=== PATIENT | female | born 1945 | race Caucasian/White ===

== ENCOUNTER 2023-02-24 10:25 | Emergency (ER) | payer OTHER, SELFPAY ==
[2023-02-24 10:28] VITALS: BP 177/97; PULSE 66; RESP 18; TEMP 36.8; BMI 26.5
--- NOTE | 2023-02-24 10:39 | CT_ITS ---
The [address] [address] Patient Name: JESSIE CANSECO MRN: [id number] date: 1945 Sex: F Assigned Patient Location: ER Current Patient Location: ER Accession/Order Number: [id number] Exam Date: 02/24/2023 10:52 Report Date: 02/24/2023 11:30 At the request of: NURIS GATES Procedure: CT head/brain wo con EXAM: CT head/brain without con, CT facial bones without con HISTORY: Fall. Head and facial injury. COMPARISON: None. TECHNIQUE: Head CT: 3 mm axial images were obtained of the brain without contrast. Facial CT: 2 mm axial images were obtained the facial bones without contrast. Multiplanar reconstructions created. Automated exposure control utilized FINDINGS: Head CT: There is mild parenchymal volume loss. The brain demonstrates normal morphology and density. There is no mass, mass effect, nor hydrocephalus. There is no parenchymal hemorrhage nor subarachnoid hemorrhage. The extra-axial structures appear unremarkable. Prominent sella turcica with mostly CSF density although some suggestion of complexity or increased density on the sagittal images. Slight herniation of the optic chiasm Facial CT: Left periorbital soft tissue swelling The globes appear symmetric. This no proptosis. There is no orbital fracture. The extraocular muscles and retro-orbital fat appear normal. Mild ethmoid and left maxillary sinus mucosal thickening. Slight rightward nasal septal deviation. Slight cortical step-off of the anterior nasal bone reference sagittal image 30. Severe degenerative changes of the temporal mandibular joints. The mandible and maxilla appear intact The mastoid air cells are patent. CT/CT head/brain wo con IMPRESSION: No acute intracranial findings by head CT without contrast. Left periorbital soft tissue swelling. Probable minimally displaced nasal bone fracture. Moderate severe degenerative changes of the temporal mandibular joints. Prominent, empty sella turcica. Some complex density seen on the sagittal view and mild herniation of the optic chiasm. This may well represent a large the sella turcica. Given the mild complexity consider follow-up MRI imaging of the sella turcica with without contrast Electronically authenticated by: CELINA LOGAN Date: 02/24/2023 11:30
--- NOTE | 2023-02-24 10:39 | CT_ITS ---
The [address] [address] Patient Name: JESSIE CANSECO MRN: [id number] date: 1945 Sex: F Assigned Patient Location: ER Current Patient Location: ED.MAIN Accession/Order Number: [id number] Exam Date: 02/24/2023 10:52 Report Date: 02/24/2023 11:51 At the request of: NURIS GATES Procedure: CT cervical spine wo con CERVICAL SPINE CT WITHOUT CONTRAST: 02/24/2023 10:52 AM EST Clinical History:fall Comparison: None available . Unenhanced helically acquired data per protocol. PREVERTEBRAL/PARASPINAL: No focal soft tissue prominence or obvious fluid collection in these regions ALIGNMENT: Unremarkable Mild smooth bordered concavities of several cervical and upper thoracic endplates are likely chronic. There is no distinct evidence of acute fracture or dislocation. Chronic ossification/calcification near the C7 spinous process tip. Moderate DDD and some associated spondylosis at C5-C6. Mild anterior spondylosis at C6-C7. At unenhanced CT no obvious significant central stenosis in the cervical region. OTHER SOFT TISSUES: No focal acute posttraumatic finding. CT/CT cervical spine wo con IMPRESSION: 1. No evidence of acute fracture or dislocation. All CT scans at this facility use dose modulation, iterative reconstruction, and/or weight based dosing when appropriate to reduce radiation dose to as low as reasonably achievable. Electronically authenticated by: DOROTA BOB Date: 02/24/2023 11:51
--- NOTE | 2023-02-24 10:39 | CT_ITS ---
The [address] [address] Patient Name: JESSIE CANSECO MRN: [id number] date: 1945 Sex: F Assigned Patient Location: ER Current Patient Location: ER Accession/Order Number: [id number] Exam Date: 02/24/2023 10:52 Report Date: 02/24/2023 11:30 At the request of: NURIS GATES Procedure: CT facial bones wo con EXAM: CT head/brain without con, CT facial bones without con HISTORY: Fall. Head and facial injury. COMPARISON: None. TECHNIQUE: Head CT: 3 mm axial images were obtained of the brain without contrast. Facial CT: 2 mm axial images were obtained the facial bones without contrast. Multiplanar reconstructions created. Automated exposure control utilized FINDINGS: Head CT: There is mild parenchymal volume loss. The brain demonstrates normal morphology and density. There is no mass, mass effect, nor hydrocephalus. There is no parenchymal hemorrhage nor subarachnoid hemorrhage. The extra-axial structures appear unremarkable. Prominent sella turcica with mostly CSF density although some suggestion of complexity or increased density on the sagittal images. Slight herniation of the optic chiasm Facial CT: Left periorbital soft tissue swelling The globes appear symmetric. This no proptosis. There is no orbital fracture. The extraocular muscles and retro-orbital fat appear normal. Mild ethmoid and left maxillary sinus mucosal thickening. Slight rightward nasal septal deviation. Slight cortical step-off of the anterior nasal bone reference sagittal image 30. Severe degenerative changes of the temporal mandibular joints. The mandible and maxilla appear intact The mastoid air cells are patent. CT/CT facial bones wo con IMPRESSION: No acute intracranial findings by head CT without contrast. Left periorbital soft tissue swelling. Probable minimally displaced nasal bone fracture. Moderate severe degenerative changes of the temporal mandibular joints. Prominent, empty sella turcica. Some complex density seen on the sagittal view and mild herniation of the optic chiasm. This may well represent a large the sella turcica. Given the mild complexity consider follow-up MRI imaging of the sella turcica with without contrast Electronically authenticated by: CELINA LOGAN Date: 02/24/2023 11:30
--- NOTE | 2023-02-24 10:41 | ED.FALL1 ---
HPI - Fall General Chief Complaint: Head Injury Stated Complaint: FALL Time Seen by Provider: 02/24/23 10:27 Source: patient Mode of arrival: walk-in Limitations: no limitations History of Present Illness HPI Narrative: 77-year-old female presents for facial injury. Last night about 10 PM she tripped and she fell hitting her face on a step. She had a laceration that she recognized last night but didn't come in to be looked at and today she has bruising on her face so she was concerned and came in. She sustained an abrasion to her left knee but that is not significant and she's been able to walk without difficulty. Otherwise no other injury. Related Data Home Medications Medication Instructions Recorded Confirmed lisinopril 5 mg tablet 5 mg PO DAILY 02/24/23 02/24/23 Previous Rx's Medication Instructions Recorded cephalexin 250 mg capsule 250 mg PO Q8H #15 caps 02/24/23 Allergies Allergy/AdvReac Type Severity Reaction Status Date / Time No Known Drug Allergies Allergy Verified 02/24/23 10:28 Review of Systems ROS Narrative A ten point review of systems is negative except as noted above. PFSH PFSH Social History Smoking status: Never smoker Exam Narrative Exam Narrative: Nurses note and vital signs reviewed and patient is not hypoxic. General: The patient appears well and in no apparent distress. Patient is resting comfortably on cart. Skin: Warm, dry, no pallor noted. There is no rash noted. Head: Normocephalic, 3 cm present obliquely oriented above her left eye. There is bruising across her forehead and around her eyes particularly on the left side. the wound appears inflamed and there are some mild erythema surrounding it. Eye: Normal conjunctiva, no drainage Ears, Nose, Mouth, and Throat: oral mucosa is moist. Nares patent. Cardiovascular: Regular Rate and Rhythm Respiratory: Patient is in no distress, no accessory muscle use, lungs are clear to auscultation, no wheezing, rales or rhonchi Back: non-tender GI: nontender Musculoskeletal: small abrasion present on the anterior left knee and her knee has full range of motion. Ankles and hips are nontender. Right knee nontender. Neurological: A&O, normal speech Psychiatric: Cooperative Constitutional Vital Signs, click to edit/add: Last Vital Signs Temp 98.2 F 11/18/23 10:28 Pulse 66 02/24/23 10:28 Resp 18 02/24/23 10:28 BP 177/97 H 02/24/23 10:28 Course Vital Signs Vital signs: Vital Signs Temperature 98.2 F 02/24/23 10:28 Pulse Rate 66 02/24/23 10:28 Respiratory Rate 18 02/24/23 10:28 Blood Pressure 177/97 H 02/24/23 10:28 Temperature 98.2 F 02/24/23 10:28 Pulse Rate 66 02/24/23 10:28 Respiratory Rate 18 02/24/23 10:28 Blood Pressure 177/97 H 02/24/23 10:28 MDM - Fall MDM Narrative Medical decision making narrative: I have high concerns guarding closing this wound. It was not adequately cleaning last night and appears quite inflamed here today. I discussed my concerns of an infection and she'll be placed on a short course of Keflex. Steri-Strips are placed and she'll follow-up with a plastic surgeon if she feels that the scar is too prominent. The patient and her family agreed to this plan. Tetanus is updated. I've also discussed the CT finding of the sella turcica with the patient and her family and she'll follow-up with her PCP for probable follow-up MRI. Treatment diagnosis and follow-up were discussed thoroughly. Differential Diagnosis Differential diagnosis: Likely other (subdural hematoma, epidural hematoma, subarachnoid hemorrhage, facial fracture) Imaging Data CT brain, facial bones, C-spinC: Radiologist's impression: Procedure: CT cervical spine wo con CERVICAL SPINE CT WITHOUT CONTRAST: 02/24/2023 10:52 AM EST Clinical History:fall Comparison: None available . Unenhanced helically acquired data per protocol. PREVERTEBRAL/PARASPINAL: No focal soft tissue prominence or obvious fluid collection in these regions ALIGNMENT: Unremarkable Mild smooth bordered concavities of several cervical and upper thoracic endplates are likely chronic. There is no distinct evidence of acute fracture or dislocation. Chronic ossification/calcification near the C7 spinous process tip. Moderate DDD and some associated spondylosis at C5-C6. Mild anterior spondylosis at C6-C7. At unenhanced CT no obvious significant central stenosis in the cervical region. OTHER SOFT TISSUES: No focal acute posttraumatic finding. IMPRESSION: 1. No evidence of acute fracture or dislocation. All CT scans at this facility use dose modulation, iterative reconstruction, and/or weight based dosing when appropriate to reduce radiation dose to as low as reasonably achievable. Electronically authenticated by: DOROTA BOB Date: 02/24/2023 11:51 Procedure: CT facial bones wo con EXAM: CT head/brain without con, CT facial bones without con HISTORY: Fall. Head and facial injury. COMPARISON: None. TECHNIQUE: Head CT: 3 mm axial images were obtained of the brain without contrast. Facial CT: 2 mm axial images were obtained the facial bones without contrast. Multiplanar reconstructions created. Automated exposure control utilized FINDINGS: Head CT: There is mild parenchymal volume loss. The brain demonstrates normal morphology and density. There is no mass, mass effect, nor hydrocephalus. There is no parenchymal hemorrhage nor subarachnoid hemorrhage. The extra-axial structures appear unremarkable. Prominent sella turcica with mostly CSF density although some suggestion of complexity or increased density on the sagittal images. Slight herniation of the optic chiasm Facial CT: Left periorbital soft tissue swelling The globes appear symmetric. This no proptosis. There is no orbital fracture. The extraocular muscles and retro-orbital fat appear normal. Mild ethmoid and left maxillary sinus mucosal thickening. Slight rightward nasal septal deviation. Slight cortical step-off of the anterior nasal bone reference sagittal image 30. Severe degenerative changes of the temporal mandibular joints. The mandible and maxilla appear intact The mastoid air cells are patent. IMPRESSION: No acute intracranial findings by head CT without contrast. Left periorbital soft tissue swelling. Probable minimally displaced nasal bone fracture. Moderate severe degenerative changes of the temporal mandibular joints. Prominent, empty sella turcica. Some complex density seen on the sagittal view and mild herniation of the optic chiasm. This may well represent a large the sella turcica. Given the mild complexity consider follow-up MRI imaging of the sella turcica with without contrast Electronically authenticated by: CELINA LOGAN Date: 02/24/2023 11:30 Procedure: CT head/brain wo con EXAM: CT head/brain without con, CT facial bones without con HISTORY: Fall. Head and facial injury. COMPARISON: None. TECHNIQUE: Head CT: 3 mm axial images were obtained of the brain without contrast. Facial CT: 2 mm axial images were obtained the facial bones without contrast. Multiplanar reconstructions created. Automated exposure control utilized FINDINGS: Head CT: There is mild parenchymal volume loss. The brain demonstrates normal morphology and density. There is no mass, mass effect, nor hydrocephalus. There is no parenchymal hemorrhage nor subarachnoid hemorrhage. The extra-axial structures appear unremarkable. Prominent sella turcica with mostly CSF density although some suggestion of complexity or increased density on the sagittal images. Slight herniation of the optic chiasm Facial CT: Left periorbital soft tissue swelling The globes appear symmetric. This no proptosis. There is no orbital fracture. The extraocular muscles and retro-orbital fat appear normal. Mild ethmoid and left maxillary sinus mucosal thickening. Slight rightward nasal septal deviation. Slight cortical step-off of the anterior nasal bone reference sagittal image 30. Severe degenerative changes of the temporal mandibular joints. The mandible and maxilla appear intact The mastoid air cells are patent. IMPRESSION: No acute intracranial findings by head CT without contrast. Left periorbital soft tissue swelling. Probable minimally displaced nasal bone fracture. Moderate severe degenerative changes of the temporal mandibular joints. Prominent, empty sella turcica. Some complex density seen on the sagittal view and mild herniation of the optic chiasm. This may well represent a large the sella turcica. Given the mild complexity consider follow-up MRI imaging of the sella turcica with without contrast Electronically authenticated by: CELINA LOGAN Date: 02/24/2023 11:30 Discharge Plan Discharge Chief Complaint: Head Injury Clinical Impression: Fracture of nasal bone, Facial laceration, Contusion of face Patient Disposition: Home, Self-Care Time of Disposition Decision: 12:15 Prescriptions / Home Meds: New cephalexin 250 mg capsule 250 mg PO Q8H Qty: 15 0RF No Action lisinopril 5 mg tablet 5 mg PO DAILY Instructions: Nasal Fracture (ED), Steristrips (ED), Facial Contusion (ED) Additional Instructions: Follow-up with PCP for follow-up MRI Stand Alone Forms: Portal Instructions Referrals: Emilia Joyner MD [Primary Care Provider] - 1 week
[2023-02-24] MEDS: ADACEL DIPH,PERTUSS(ACELL),TET VAC/PF 0.5 ML ADULT SYRINGE IM (12:32)
== END 2023-02-24 12:35 | disposition home or self-care (01) ==
PROVIDERS: Emergency Provider Emergency Medicine; PCP Family Medicine
DX: S01.81XA Laceration without foreign body of other part of head, initial encounter (principal); S02.2XXA Fracture of nasal bones, initial encounter for closed fracture; Z23 Encounter for immunization; W01.198A Fall on same level from slipping, tripping and stumbling with subsequent striking against other object, initial encounter
CPT/HCPCS: 70450; 70486; 72125; 90471; 90715; 99285

== ENCOUNTER 2024-01-18 10:13 | Outpatient (OUT) | payer OTHER, SELFPAY ==
[2024-01-18 10:54] LABS: Basophils Absolute Auto 0.1 10^3/uL (0.0-0.1); Basophils Percent Auto 0.6 % (0.2-2.0); Eosinophils Absolute Auto 0.1 10^3/uL (0.0-0.7); Eosinophils Percent Auto 0.7 % (0.9-7.0); Hematocrit 40.8 % (36.0-48.0); Hemoglobin 13.2 g/dL (12.0-16.0); Immature Granulocytes Abs Auto 0.03 10^3/uL (0.00-0.03); Immature Granulocytes Pct Auto 0.3 % (0.0-0.5); Lymphocytes Absolute Auto 2.6 10^3/uL (1.2-3.8); Lymphocytes Percent Auto 29.9 % (20.5-60.0); Mean Corpuscular HGB Conc 32.4 g/dL (29.9-35.2); Mean Corpuscular Hemoglobin 30.6 pg (26.7-34.0); Mean Corpuscular Volume 94.4 fL (81.0-99.0); Mean Platelet Volume 10.1 fL (9.5-13.5); Monocytes Absolute Auto 0.7 10^3/uL (0.3-0.8); Monocytes Percent Auto 7.7 % (1.7-12.0); Neutrophils Absolute Auto 5.3 10^3/uL (1.4-6.5); Neutrophils Percent Auto 60.8 % (43.0-75.0); Platelet Count 334 10^3/uL (150-450); Red Blood Count 4.32 10^6/uL (4.20-5.40); White Blood Count 8.7 10^3/uL (4.0-11.0)
[2024-01-18 10:57] LABS: Estimated Average Glucose 111 mg/dL; Glycohemoglobin A1C 5.5 % (4.5-6.2)
[2024-01-18 11:01] LABS: Alanine Aminotransferase 25 U/L (14-59); Albumin Globulin Ratio 0.8; Albumin Level 3.3 g/dL (3.4-5.0); Alkaline Phosphatase 100 U/L (46-116); Anion Gap 10.3; Aspartate Amino Transferase 20 U/L (15-37); BUN Creatinine Ratio 20.4; Bilirubin Total 0.5 mg/dL (0.2-1.0); Calcium 8.8 mg/dL (8.5-10.1); Chloride 103 mmol/L (98-107); Chol HDL Ratio 3.2; Cholesterol 280 mg/dL (<=200); Estimated GFR (African America >60 (>=60 mL/min/1.73m^2); Estimated GFR (Non-African Ame 58 (>=60 mL/min/1.73m^2); Globulin 4.1 g/dL; Glucose 107 mg/dL (74-106); HDL Cholesterol 87 mg/dL (40-60); Potassium 4.3 mmol/L (3.5-5.1); Sodium 136 mmol/L (136-145); Total Protein 7.4 g/dL (6.4-8.2); Triglycerides 55 mg/dL (<=150)
== END 2024-01-18 10:14 | disposition home or self-care (01) ==
LOC: LAB 10:14
PROVIDERS: PCP Family Medicine; Visit Provider Family Medicine
DX: R73.09 Other abnormal glucose (principal); I10 Essential (primary) hypertension; E78.00 Pure hypercholesterolemia, unspecified
CPT/HCPCS: 36415; 80053; 80061; 83036; 85025

== ENCOUNTER 2025-02-09 12:10 | Outpatient (OUT) | payer MEDICARE, SELFPAY ==
--- OUTSIDE RECORDS SUMMARY | 2025-02-09 12:20 | XMS_ITS | Patient Health Record ---
Author Organization [facility] in [place] Address [address] [place] [address] Care Team Providers Care Conservation Officer Name Role Phone Emilia Joyner Primary Care Provider Unavailabl e Allergies No Known Allergies Reason For Referral No Information Medications Medication SIG (Take, Route, Frequency, Duration) Notes Start Date End Date Status MoviPrep 100 GM as directed Orally Once; Duratio n: 1 days 3ActiveLisinoprilActive Social History Tobacco Use: Social History Observation Description Date Details (start date - stop date) Never Smoker NA - NA Tobacco Use/Smoking Question Answer Notes Patient is a nonsmoker Problems Problem Type SNOMED Code ICD Code Onset Dates Problem Status W/U Status Risk Notes Problem Diverticular disease of colon (3 98789651) Colon, diverticulosis (K57.30) Activeconfirmed Plan Of Treatment No Information Insurance Providers Payer Name Payer Address Payer Phone Subscriber Number Group Number Insured Name Patient Relationship to Insured Coverage Start Date Coverage End Date [employer] [address] [place] [id number] JiménezAnnaf - patient is the insured Medical (General) History Medical History History ICD Code Essential (primary) hypertension I10 Surgical History Surgery Date(Month/Year) hysteroctomy hernia repairleft ankle repairHospitalization History Reason Date(Month/Year) see above surgeries
--- OUTSIDE RECORDS SUMMARY | 2025-02-09 12:20 | XMS_ITS | Clinical Summary ---
Author Organization [facility] Address [address] [place] [address] Phone Care Team Providers Care Tracing Lathe Set Up Operator Name Role Phone Unavailable Primary Care Provider Unavailabl e Social History Tobacco UseTypesPacks/DayYears UsedDateSmoking Tobacco: Never Assessed CommentsUnknownSex and Gender InformationValueDate RecordedSex Assigned at Not on fileLegal MlgZlflrq24/26/2022 5:00 AM ESTGender IdentityNot on fileSexual OrientationNot on file Plan of Treatment Health MaintenanceDue DateLast DoneCommentsLipid Panel1945Yearly Adult Ammszaxy56/21/1946Hepatitis C Syktaxdhv64/21/1964DTaP/Tdap/Td Vaccines (1 - Tdap)11/28/1967Pneumococcal Vaccine (1 of 1 - PCV)11/28/1995Zoster Vaccines (1 of 2)11/28/1995Bone Density Scan2010RSV High Risk: (Elderly (60+) or Population) (1 - 1-dose 75+ series)2020Influenza Vaccine (#1) 5COVID-19 Vaccine (1 - 2024- season)2024HIB VaccinesAged OutNo longer eligible based on patient's age to complete this topicHPV VaccinesAged OutNo longer eligible based on patient's age to complete this topicHepatitis A VaccinesAged OutNo longer eligible based on patient's age to complete this topic Hepatitis B VaccinesAged OutNo longer eligible based on patient's age to complete this topicIPV VaccinesAged OutNo longer eligible based on patient's age to complete this topicMeningococcal VaccineAged OutNo longer eligible based on patient's age to complete this topicRotavirus VaccinesAged OutNo longer eligible based on patient's age to complete this topic
--- OUTSIDE RECORDS SUMMARY | 2025-02-09 12:21 | XMS_ITS | Encounter Summary ---
Author Organization [facility] Address [address] [facility] [place] [address] Care Team Providers Care Medical Doctor Md Name Role Phone Unavailable Primary Care Provider Unavailabl e Encounter Details DateTypeDepartmentCare Team (Latest Contact Info)Gevoyefurla15/09/2025Telephone [facility] [address] [facility] [address] [place] [address] Raquel Borjas MA Social History Tobacco UseTypesPacks/DayYears UsedDateSmoking Tobacco: NeverSmokeless Tobacco: NeverAlcohol UseStandard Drinks/WeekCommentsDefer0 (1 standard drink = 0.6 oz pure alcohol)CommentsUnknownSex and Gender InformationValueDate Recorded Sex Assigned at BirthNot on fileLegal DyrUqwarx06/15/2023 7:48 PM EDTGender IdentityNot on fileSexual OrientationNot on filedocumented as of this encounter Miscellaneous Notes * Addendum Note - Marco A Feldman NP - 01/28/2025 4:13 PM EDTAddended by: MARCO A FELDMAN on: 01/28/2025 04:13 PM Modules accepted: Orders * Telephone Encounter - Marco A Feldman NP - 01/28/2025 4:13 PM EDT Sent in tizanidine muscle relaxer. * Telephone Encounter - Sanjana Ludwig - 01/28/2025 9:15 AM EDT Called pt to verify appt information and pt states she needs refills on her Muscle relaxer's. Pt did not know the name of them because she threw the bottle away [facility] [place] * Telephone Encounter - Aminah Rivera MA - 01/27/2025 10:36 PM EDT Patient has two appts scheduled with [facility]. Please call pt and verify which one she wants to keep. She cannot have both. Thank you * Telephone Encounter - Raquel Borjas MA - 01/19/2025 10:46 AM EDT Patient leaves message, returning call to reschedule upcoming appt * Telephone Encounter - Sanjana Ludwig - 01/19/2025 8:37 AM EDT Called pt no answer LMTCB * Telephone Encounter - Sanjana Ludwig - 01/16/2025 11:04 AM EDT Called pt, no answer, LMTCB * Telephone Encounter - Raquel Borjas MA - 01/15/2025 2:06 PM EDT Patient leaves a message that she needs to reschedule her upcoming appt documented in this encounter Plan of Treatment DateTypeDepartmentCare Team (Latest Contact Info)Bnmlchtfsbz62/11/2025 1:30 PM ESTOffice Visit [facility] [address] [place] [id number] [facility] Geronimo, ESTIMATION MANAGER-GROUP ART SUPERVISOR [address] [facility] [place] [address] documented as of this encounter Visit Diagnoses Diagnosis Cervical radiculopathy Brachial neuritis or radiculitis nos documented in this encounter
--- OUTSIDE RECORDS SUMMARY | 2025-02-09 12:21 | XMS_ITS | Clinical Summary ---
Author Organization [facility] Healthcare Address [address] [place] [address] Care Team Providers Care Machine Maintenance Technician Name Role Phone Unavailable Primary Care Provider Unavailabl e Allergies No known active allergies Medications MedicationSigDispense QuantityRefillsLast FilledStart DateEnd DateStatus traMADol (Ultram) 50 MG tablet every 8 (eight) hoursActive lisinopril 5 MG tablet Take 1 tablet every day by oral route for 90 days.Active lisinopril 20 MG tablet 1 (one) time each day at the same timeActive ibuprofen 800 MG tablet Take 800 mg by mouth 3 (three) times a day as neededActive Multiple Vitamin (MULTIVITAMIN ADULT PO) Active Red Yeast Rice Extract (RED YEAST RICE PO) Active Calcium Carb-Cholecalciferol (CALCIUM 500 + D PO) CalciumActive Aspirin (ECOTRIN PO) EcotrinActive Misc Natural Products (SUPER GREENS PO) Super GreensActive clobetasol (Temovate) 0.05 % external solution Indications:Psoriasis vulgarisApply to scalp once daily when flared/itchy. Hold when clear. 30 day supply 50 mL ctive tiZANidine (Zanaflex) 4 MG tablet Indications:Cervical radiculopathyTake 1 tablet (4 mg) by mouth at bedtime 90 tablet //ctive tiZANidine (Zanaflex) 4 MG tablet Indications:Cervical radiculopathyTake 1 tablet (4 mg) by mouth at bedtime 30 tablet 11051Discontinued(Reorder) Active Problems ProblemNoted DateDiagnosed DateCervical olcforkucwtre10/10/2025Diverticular disease of colon09/10/20245322Nbzmjyvqavdnivnxebuc94/04/2025Impingement of left ankle joint09/10/2024Loss of hair09/10/20248117Vqdsnwat67/04/2025Overactive bladder 09/10/2024Primary hmedgdoorpqa29/04/2025Post-menopausal wnpprrjzjlqi85/04/2025 Restless legs behltxvy86/04/2025Recurrent urinary tract piuypuywf81/04/2025 Sciatica of right side09/10/2024 Encounters DateTypeDepartmentCare RtwhSczeqmhmfwt70/09/2025Telephone [facility] [address] [place] [address] Raquel Borjas MA 11/28/2024Refill [facility] [address] [place] [address] Lisbet Rollins, MARKETING PRODUCTION SPECIALIST-BILLET SHEARER Psoriasis vulgarisfrom Last 3 Months Social History Tobacco UseTypesPacks/DayYears UsedDateSmoking Tobacco: NeverSmokeless Tobacco: Never Tobacco Cessation:Counseling Given: Not Answered Alcohol UseStandard Drinks/WeekCommentsDefer0 (1 standard drink = 0.6 oz pure alcohol)CommentsUnknownSex and Gender InformationValueDate RecordedSex Assigned at BirthNot on fileLegal ZliBnpmqb45/15/2023 7:48 PM EDTGender Identity Not on fileSexual OrientationNot on file Last Filed Vital Signs Vital SignReadingTime TakenCommentsBlood Mhxgcubb638/8410/23/2024 10:29 AM EDT Pulse--Temperature--Respiratory Rate--Oxygen Saturation--Inhaled Oxygen Concentration--Hfmbcr20.3 kg (133 lb)10/23/2024 10:29 AM CBLSkzasb348.9 cm (4' 11 )10/23/2024 10:29 AM EDTBody Mass Index26.8610/23/2024 10:29 AM EDT Plan of Treatment DateTypeDepartmentCare Team (Latest Contact Info)Whyvvrubnda74/11/2025 1:30 PM ESTOffice Visit [facility] [address] [place] [address] Lizett Geronimo, MARKETING PRODUCTION SPECIALIST-BILLET SHEARER [address] [place], [place] [id number] Insurance * Guarantor: Dara Jiménez AAccount TypeRelation to PatientDate of BirthPhone Billing AddressPersonal/SpwappKlca11[birth year][address] [address]
--- OUTSIDE RECORDS SUMMARY | 2025-02-09 12:21 | XMS_ITS | Clinical Summary ---
Author Organization [facility] [id number] [address] [place] [address] Care Team Providers Care Heat Treat Operator Name Role Phone Unavailable Primary Care Provider Unavailabl e Allergies No known active allergies Medications MedicationSigDispense QuantityRefillsLast FilledStart DateEnd DateStatus oxyCODONE-acetaminophen (PERCOCET) 5-325 mg per tablet Take 1 tablet by mouth every 4 (four) hours as needed for pain.04/20/2017Active lisinopril (PRINIVIL,ZESTRIL) 5 mg tablet Take 5 mg by mouth daily.04/20/2017Active RED YEAST RICE ORAL Take 1,200 mg by mouth daily.04/20/2017Active enoxaparin (LOVENOX) 40 mg/0.4 mL syringe Inject 40 mg under the skin daily.04/20/2017Active CALCIUM CARBONATE/VITAMIN D3 (CALCIUM WITH VITAMIN D ORAL) Take 1 tablet by mouth daily. 5000 IU04/20/2017Active dietary supplement capsule Take 2 capsules by mouth daily. ULTRA SUPER GREENS 2 PO DAILY04/20/2017Active Social History Tobacco UseTypesPacks/DayYears UsedDateSmoking Tobacco: Never AssessedChildcare AnswerDate ZngztsalAlvoksbgyPwmngpo84/13/2019EmploymentAnswerDate Recorded PaxciybvcpNydwbks05/13/2019Purpose - LifeAnswerDate RecordedPurpose and direction in yuxzDikjgyt36/11/2021CommentsUnknownSex and Gender InformationValueDate RecordedSex Assigned at BirthNot on fileLegal SexFemale 04/17/2017 4:46 PM ESTGender IdentityNot on fileSexual OrientationNot on file Last Filed Vital Signs Vital SignReadingTime TakenCommentsBlood Cgdrkfjh066/62005/18/2017 8:27 AM EST Jbdss9792/12/2017 8:27 AM XHLRipcfoemhmn81.4 ??C (97.5 ??F)05/18/2017 8:27 AM ESTRespiratory Lxtg646605/18/2017 8:27 AM ESTOxygen Kdhfynoijc08%04/26/2017 5:02 PM ESTInhaled Oxygen Concentration--Qajnyy33.4 kg (120 lb)04/20/2017 1:44 PM EST Jiicei772.9 cm (4' 11 )04/20/2017 1:44 PM ESTBody Mass Index24.24004/20/2017 1:44 PM EST Plan of Treatment Not on file Medical Devices Not on file Insurance
--- OUTSIDE RECORDS SUMMARY | 2025-02-09 12:28 | XMS_ITS | CCD ---
Author Organization [facility] CliniSyla Care Team Providers Care Youth Nutritional Monitor Name Role Phone ALEYDA SANTOS A Unavailable Unavailable SANTOSPRESTON HUMPHREYSEB A Unavailable Unavailable BEE, HARVEY Unavailable Unavailable BEE, HARVEY Unavailable Unavailable UNKNOWN, PROVIDER Unavailable Unavailable UNKNOWN, PROVIDER Unavailable Unavailable BEE, HARVEY Unavailable Unavailable MD Emilia Mason Primary Care Provider MD Emilia Mason Attending Provider MD Jessie Mercer Referring Provider [phone] MD Emilia Mason Primary Care Provider MD Emilia Mason Referring Provider Self, Referral Attending Provider Unavailable Dr. Emilia Mason Referring Unav ailable Jessie Mercer Attending Unavailable JOSEN ., MAYLIN Attending Unavailable DR EMILIA MASON Primary Care Unavailable TAMMERCEDEZ .MAYLIN Admitting Unavailable MARLON, DR EMILIA Elizondo Admitting Unavailable MARLON, DR EMILIA Elizondo Attending Unavailable DR EMILIA MASON Consulting Unavailable DR EMILIA MASON Primary Care Unavailable DR EMILIA MASON Primary Care Unavailable DR EMILIA MASON Admitting Unavailable MARLON, DR EMILIA Elizondo Attending Unavailable DR EMILIA MASON Consulting Unavailable EVELINA ., SABAS Admitting Unavailable EVELINA ., SABAS Attending Unavailable DR EMILIA MASON Primary Care Unavailable EVELINA ., SABAS Admitting Unavailable EVELINA ., SABAS Attending Unavailable EVELINA ., SABAS Consulting Unavailable DR EMILIA MASON Primary Care Unavailable EVELINA ., SABAS Admitting Unavailable EVELINA ., SABAS Attending Unavailable DR EMILIA MASON Consulting Unavailable DR EMILIA MASON Primary Care Unavailable Emilia Mason Unavailable Gabi Gauthier Unavailable MD Emilia Mason Primary Care Provider MD Tony Damico Attending Provider Unavailable Primary Care Provider UnavailEmilia Vaughn MD Primary Care Provider Emilia Mason MD Attending Provider [phone] Emilia Mason Primary Care Unavailable Tony Damico Admitting Unavailable Tony Damico Attending Unavailable Emilia Mason Primary Care Unavailable Emilia Mason Attending Unavailable Emilia Mason Admitting Unavailable Emilia Mason MD Primary Care Provider Emilia Mason MD Attending Provider TABBY LEVIN Attending Unavailable TABBY LEVIN Referring Unavailable LISBET ROLLINS Attending Unavailable TABBY LEVIN Attending Unavailable Emilia Mason MD Primary Care Provider Emilia Mason MD Attending Provider Allergies Allergy ClassificationReported Allergen(s)Allergy TypeDate of OnsetReaction(s) Facility (7 sources)patient allergy list reviewed by nurse or physiciaPropensity to adverse ilobsghvv51-92-9551Mgoukcm:Ui[employer] Other (7 sources)Allergies ReconciledPropensity to adverse reactionsFranciscan Health MooresvilleBeijing NetentSec Other (5 sources)ezetimibe; Translations: [ezetimibe]Drug Rqjpzss34-36-5111Xrrvvnih of the [facility] Medications Current Medications MedicationDrug Class(es)DatesSig (Normalized)Sig (Original)Aspirin (8 sources)Platelet Aggregation Inhibitor, Nonsteroidal Anti-inflammatory Drug Aspirin (ECOTRIN PO) Ecotrin ActiveCalcium (6 sources)Phosphate Binder, CalciumCalcium ActiveCalcium Carb-Cholecalciferol (CALCIUM 500 + D PO) (8 sources)Calcium Carb-Cholecalciferol (CALCIUM 500 + D PO) Calcium Active clobetasol propionate 0.5 mg/ml topical solution (13 sources)CorticosteroidStart: 95-89-5633njbfxabmrv (Temovate) 0.05 % external solution Indications: Psoriasis vulgaris Apply to scalp once daily when flared/itchy. Hold when clear. 30 day supply 50 mL 3 01/30/2024 ActiveStart: 01-14-2024 End: 41-87-8400Xtmvcnzrym 0.05 % solution Discontinued TOPICAL January 14, 2024 12:00am January 14, 2025 10:29amStart: 09-61-9817Knvjnysgqe Active TOPICAL January 14, 2024 12:00amStart: 75-07-7569tnfbdajzvj (Temovate) 0.05 % external solution Indications: Psoriasis vulgaris (CMS/HCC) Apply to scalp once daily when flared/itchy. Hold when clear. 30 day supply 50 mL 11 01/07/2024 Active Start: 76-66-8119xycynsvggd (Temovate) 0.05 % external solution Indications: Psoriasis vulgaris (CMS/HCC) Apply to scalp once daily when flared/itchy. Hold when clear. 30 day supply 50 mL 11 01/07/2024 ActiveCollagen (6 sources)Collagen Activeibandronic acid 150 mg oral tablet (3 sources)BisphosphonateStart: 06-23-2024 End: 14-81-6337fsoo 1 tablet by mouth every monthIbandronate 150 mg tablet Active 150 MG PO every month July 29, 2024 12:36pm Complies with drug therapyibuprofen 800 mg oral tablet (20 sources)Nonsteroidal Anti-inflammatory DrugStart: 66-28-1812kvip 1 tablet by mouth three times daily as neededIbuprofen 800 mg tablet Active 0 .ROUTE .COMPLEX 90 September 11, 2024 10:32am TAKE 1 TABLET BY MOUTH THREE TIMES DAILY NEEDED Complies with drug therapyStart: 01-14-2024 End: 19-44-3966lfhb 1 tablet by mouth three times daily as neededIbuprofen 800 mg tablet Discontinued 800 MG PO Three times daily as needed January 14, 2024 12:00am September 11, 2024 10:32amtake 1 tablet by mouth every eight hours at mealtime as neededIbuprofen 800 MG 1 tablet with food or milk as needed Orally every 8 hrs Qvowie83 hr metoprolol succinate 50 mg extended release oral tablet (1 source)beta-Adrenergic BlockerStart: 59-84-0314exda 1 tablet by mouth once dailyMetoprolol Succinate (Toprol Xl) 50 mg tablet extended release 24 hr Active 50 MG PO Daily 90 January 14, 2025 12:00am Complies with drug therapyMisc Natural Products (SUPER GREENS PO) (8 sources)Misc Natural Products (SUPER GREENS PO) Super Greens ActiveMultiple Vitamin (MULTIVITAMIN ADULT PO) (8 sources)Multiple Vitamin (MULTIVITAMIN ADULT PO) ActiveMultivitamin preparation (6 sources)take 1 tablet by mouth once dailyMultivitamin - 1 tablet Orally Once a day ActiveMultivitamin tablet (3 sources)Start: 54-21-3301pmpo 1 tablet by mouth once dailyMultivitamin tablet Active 1 TAB PO Daily June 23, 2024 12:00am Complies with drug therapyStart: 44-97-8255mvpi 1 tablet by mouth once dailyMultivitamin tablet Active 1 TAB PO Daily June 23, 2024 12:00amRed Yeast Rice (6 sources)Red Yeast Rice ActiveRed Yeast Rice Extract (RED YEAST RICE PO) (8 sources)Red Yeast Rice Extract (RED YEAST RICE PO) Activerosuvastatin calcium 10 mg oral tablet (4 sources)HMG-CoA Reductase InhibitorStart: 10-32-2674vgsv 1 tablet by mouth every twenty-four hoursCrestor 10 MG 1 tablet Orally Once a day for 30 days August, ActivetiZANidine 4 mg oral tablet (8 sources)Central alpha-2 Adrenergic AgonistStart: 60-61-5233bcvp 1 tablet by mouth once daily at bedtime as neededTizanidine 4 mg tablet Active 4 MG PO Daily at bedtime as needed January 14, 2025 12:00am Complieswith drug therapyStart: 09-11-2024 End: 83-41-5551fiky 1 tablet by mouth at bedtimetiZANidine (Zanaflex) 4 MG tablet Indications: Cervical radiculopathy Take 1 tablet (4 mg) by mouthat bedtime 30 tablet 10/23/2024 11/22/2024 ActivetraMADol hydrochloride 50 mg oral tablet (8 sources)Opioid AgonisttraMADol (Ultram) 50 MG tablet every 8 (eight) hours ActivevalACYclovir 1000 mg oral tablet (1 source)Herpesvirus Nucleoside Analog DNA Polymerase Inhibitor, Herpes Simplex Virus Nucleoside Analog DNA Polymerase Inhibitor, Herpes Zoster Virus Nucleoside Analog DNA Polymerase InhibitorStart: 98-40-6917Hybidgilensx (Valtrex) 1 gram tablet Active 2000 MG PO Twice daily January 14, 2025 12:00am Complies with drug therapy Completed/Discontinued Medications MedicationDrug Class(es)DatesSig (Normalized)Sig (Original)ezetimibe 10 mg oral tablet (4 sources)Dietary Cholesterol Absorption InhibitorStart: 03-12-2024 End: 85-84-4071hkul 1 tablet by mouth once dailyEzetimibe (Zetia) 10 mg tablet Discontinued 10 MG PO Daily March 12, 2024 1:00am March 26, 2024 2:35pmlisinopril 5 mg oral tablet (20 sources)Angiotensin Converting Enzyme InhibitorStart: 01-14-2024 End: 72-20-0554xiyw 1 tablet by mouth once dailyLisinopril 5 mg tablet Discontinued 5 MG PO Daily June 09, 2024 12:22pm January 14, 2025 10:29am lisinopril 20 MG tablet 1 (one) time each day at the same time Active nitrofurantoin, macrocrystals 100 mg oral capsule (1 source)Nitrofuran AntibacterialStart: 01-07-2025 End: 00-10-5380efib 1 capsule by mouth twice daily at mealtimeNitrofurantoin Macrocrystal 100 mg capsule Discontinued 100 MG PO Twice daily January 07, 2025 12:00am January 14, 2025 10:29am must administer with a meal/food triamcinolone acetonide 40 mg/ml injectable suspension (6 sources)CorticosteroidStart: 50-21-9710Uguxybh-40 Jan, 20 mg Problems Active Problems Problem ClassificationProblemDateDocumented DateEpisodic/ChronicAbdominal pain (9 sources)Left lower quadrant pain; Translations: [Left lower quadrant pain] Onset: 34-16-0020YumaillsKglcwkesxjmc of device; implant or graft (3 sources)Pain due to internal orthopedic prosthetic devices, implants and grafts, initial encounter; Translations: [Pain due to internal orthopedic prosth dev/grft, init]EpisodicDiabetes mellitus without complication (4 sources)Increased glucose level; Translations: [Other abnormal glucose] 92-14-6881BvqbryutSkmfddiwp of lipid metabolism (20 sources)Pure hypercholesterolemia; Translations: [Pure hypercholesterolemia, unspecified]Onset: 99-79-4896AsklgxhGmktamrdmhabps and diverticulitis (5 sources)Diverticulosis of colon; Translations: [Diverticulosis of large intestine without perforation or abscess without bleeding]Onset: 09-10-2024 10-59-5520NoczhyxFzbdfulez hypertension (20 sources)Essential (primary) hypertension; Translations: [Essential hypertension]Onset: 06-04-2815OigssvyKaxaiwlz of lower limb (6 sources)Displaced fracture of lateral malleolus of left fibula, subsequent encounter for closed fracture with routine healing; Translations: [Displaced pilon fracture of left tibia, subsequent encounter for closed fracture with routine healing]Onset: 94-50-4005XgzjtirtDkxuubtcsjsiu symptoms and ill-defined conditions (11 sources)Genitourinary symptoms; Translations: [Unspecified symptoms and signs involving the genitourinary system]Onset: 326778-37-9802Zenttbdu Nonmalignant breast conditions (3 sources)Pain of breast; Translations: [Mastodynia]EpisodicNonspecific chest pain (16 sources)Left sided chest pain; Translations: [Chest pain, unspecified] EpisodicOpen wounds of head; neck; and trunk (1 source)Laceration without foreign body of other part of head, initial encounterEpisodicOsteoarthritis (16 sources)Osteoarthritis; Translations: [Unspecified osteoarthritis, unspecified site]ChronicOsteoporosis (20 sources)Postmenopausal osteopenia; Translations: [Age-related osteoporosis without current pathological fracture]Onset: 308147-13-3338JtqtzdmQgkps circulatory disease (3 sources)Elevated blood-pressure reading without diagnosis of hypertension; Translations: [Elevated blood-pressure reading, without diagnosis of hypertension]EpisodicOther connective tissue disease (13 sources)Pain in limb; Translations: [Pain in left finger(s)]EpisodicOther connective tissue disease (10 sources)Enthesopathy of hip region; Translations: [Trochanteric bursitis, left hip]EpisodicOther connective tissue disease (3 sources)Trochanteric bursitis of left hip; Translations: [Trochanteric bursitis, left hip]EpisodicOther connective tissue disease (2 sources)Trigger finger, right middle fingerEpisodicOther connective tissue disease (1 source)Ganglion, right handEpisodicOther diseases of bladder and urethra (15 sources)Overactive bladder; Translations: [Overactive bladder]Onset: 561631-65-6567GyqutsrGtowx gastrointestinal disorders (6 sources)Constipation; Translations: [Constipation, unspecified]EpisodicOther hereditary and degenerative nervous system conditions (18 sources)Restless legs; Translations: [Restless legs syndrome]Onset: 450706-22-1544GlbrhwjJfsgu inflammatory condition of skin (2 sources)Psoriasis vulgaris; Translations: [Psoriasis vulgaris]01-07-2024 ChronicOther injuries and conditions due to external causes (6 sources)History of fall; Translations: [Personal history of fall]Onset: 00-41-3992UphjcdcxQltkq injuries and conditions due to external causes (1 source)History of fallingEpisodicOther non-traumatic joint disorders (10 sources)Finger joint locking; Translations: [Other specific joint derangements of unspecified hand, not elsewhere classified]ChronicOther non- traumatic joint disorders (15 sources)Impingement of left ankle joint; Translations: [Other specified joint disorders, left ankle and foot]Onset: 850187-63-8810GwzgglwfFjxss non-traumatic joint disorders (3 sources)Arthralgia of the ankle and/or foot; Translations: [Pain in left ankle and joints of left foot]EpisodicOther non-traumatic joint disorders (3 sources)Other specified joint disorders, left ankle and foot; Translations: [Other specified joint disorders, left ankle and foot]EpisodicOther non- traumatic joint disorders (3 sources)Pain in right hip joint; Translations: [Pain in right hip]Episodic Other skin disorders (3 sources)Alopecia; Translations: [Nonscarring hair loss, unspecified]Episodic Other skin disorders (2 sources)Inflamed seborrheic keratosis; Translations: [Inflamed seborrheic keratosis]82-83-2502OoydikisAffvc skin disorders (5 sources)Loss of hair; Translations: [Nonscarring hair loss, unspecified] Onset: 409679-78-3389TwuojczcTnehnvma codes; unclassified (10 sources)Insomnia; Translations: [Other insomnia]ChronicResidual codes; unclassified (3 sources)Immunization refused ; Translations: [Immunization not carried out because of patient refusal]EpisodicResidual codes; unclassified (3 sources)Postmenopausal state; Translations: [Asymptomatic menopausal state] EpisodicResidual codes; unclassified (4 sources)Menopause present; Translations: [Asymptomatic menopausal state] 27-41-6574IxblrwjcDtpmmsgp codes; unclassified (2 sources)Influenza vaccination declined; Translations: [Immunization not carried out because of patient refusal]98-56-8582JzthjgwhTepkemznqcb; intervertebral disc disorders; other back problems (20 sources)Radiculopathy, lumbar region; Translations: [Intervertebral disc disorders with radiculopathy, lumbar region]Onset: 18-38-6925Anzjqter Unclassified (7 sources)Abnormal result of other cardiovascular function study; Translations: [Other abnormal findings on diagnostic imaging of central nervous system]Onset: 96-21-5786XcwcktphLmsewcfhjuhu (2 sources)Unknown / UNK(Unknown)Onset: 14-39-6959Ijncvjgjusgq (2 sources)Abnormal result of other cardiovascular function study / R94.39(ICD-9)Onset: 20-19-2574Dwxsdmutwfqr (1 source)Other chest pain / R07.89(ICD-9)Onset: 03-36-7068Hvhrgjzblsjo (2 sources)LOW BACK PAIN, UNSPECIFIED; Translations: [LOW BACK PAIN, UNSPECIFIED]Onset: 25-03-0485Yrzmpzppagxg (1 source)Low back pain, unspecified; Translations: [Low back pain, unspecified] Onset: 27-21-0737Hneexsf tract infections (5 sources)Recurrent urinary tract infection; Translations: [Urinary tract infection, site not specified]Onset: 135777-29-5378Sswupngn Past or Other Problems Problem ClassificationProblemDateDocumented DateEpisodic/ChronicConditions associated with dizziness or vertigo (3 sources)Benign paroxysmal positional vertigo; Translations: [Benign paroxysmal positional vertigo]Onset: 62-47-5895GsyhjwgrKzommwpn codes; unclassified (3 sources)Acquired absence of uterus; Translations: [Acquired absence of uterus with remaining cervical stump]Onset: 22-74-7191MtupvdvjSwcqyddhxtmh (1 source)LOW BACK PAIN, UNSPECIFIED; Translations: [LOW BACK PAIN, UNSPECIFIED] Onset: 09-16-2021 Results Test NameValueInterpretationReference RangeFacilityXR CERVICAL SPINE AP/LAT/FLEX/EXT/OBLIQUESon 93-12-0365TL CERVICAL SPINE AP/LAT/FLEX/EXT/OBLIQUES Exam: XR CERVICAL SPINE AP/LAT/FLEX/EXT/OBLIQUES Reason for exam: Cervical pain with flexion on left side Prior comparative studies: None Findings: There is substantial disc narrowing with bulky endplate sclerosis and osteophyte formation see 5-C7. Findings are most severe at C5-6. Mild facet sclerosis is present at all levels. Atlantoaxial space is normal. There is osseous neuroforaminal narrowing on the right at C5-6. There is 3 mm of retrolisthesis of C5 on C6 is present. This is unchanged with extension and reduces completely with flexion. IMPRESSION: 1. Substantial degenerative changes in the cervical spine most notably at C5-6. 2. Minimal laxity demonstrated at C5-6 with flexion and extension. 3. Significant osseous neuroforaminal narrowing on the right at C5-6. Dictated on: 09/10/2024 1:47 PM This report has been electronically signed and approved by the interpreting radiologist.NormalNot AvailableXR Cervical spine 4 or 5 Viewson 00-64-5940Cevy: XR CERVICAL SPINE AP/LAT/FLEX/EXT/OBLIQUES Reason for exam: Cervical pain with flexion on left side Prior comparative studies: None Findings: There is substantial disc narrowing with bulky endplate sclerosis and osteophyte formation see 5-C7. Findings are most severe at C5-6. Mild facet sclerosis is present at all levels. Atlantoaxial space is normal. There is osseous neuroforaminal narrowing on the right at C5-6. There is 3 mm of retrolisthesis of C5 on C6 is present. This is unchanged with extension and reduces completely with flexion. IMPRESSION: 1. Substantial degenerative changes in the cervical spine most notably at C5-6. 2. Minimal laxity demonstrated at C5-6 with flexion and extension. 3. Significant osseous neuroforaminal narrowing on the right at C5-6. Dictated on: 09/10/2024 1:47 PM This report has been electronically signed and approved by the interpreting radiologist. Abhi Granados MD - 09/10/2024 Exam: XR CERVICAL SPINE AP/LAT/FLEX/EXT/OBLIQUES Reason for exam: Cervical pain with flexion on left side Prior comparative studies: None Findings: There is substantial disc narrowing with bulky endplate sclerosis and osteophyte formation see 5-C7. Findings are most severe at C5-6. Mild facet sclerosis is present at all levels. Atlantoaxial space is normal. There is osseous neuroforaminal narrowing on the right at C5-6. There is 3 mm of retrolisthesis of C5 on C6 is present. This is unchanged with extension and reduces completely with flexion. IMPRESSION: 1. Substantial degenerative changes in the cervical spine most notably at C5-6. 2. Minimal laxity demonstrated at C5-6 with flexion and extension. 3. Significant osseous neuroforaminal narrowing on the right at C5-6. Dictated on: 09/10/2024 1:47 PM This report has been electronically signed and approved by the interpreting radiologist. [facility] ChildrenRadiology Study observation (narrative)[facility] Cervical spine 4 or 5 ViewsOrdered By: Abhi Garcia on 25-00-2696WQNPShriners Hospitals for Children Work Phone: mm screening mammo BI w/CADon 86-57-0604JZ screening mammo BI w/CADST[facility] [address] [place] [address] Mammography Report Signed Patient: Dara Jiménez MR#: [id number] : 1945 Acct:[id number] Age/Sex: 78 / F Adm Date: 06/06/24 Loc: [place] Room: Type: [facility] Attending Dr: Emilia Mason MD Ordering Provider: Emilia Mason MD Date of Service: 06/06/24 Procedure(s): MM screening mammo BI w/CAD Accession Number(s): ([id number]) MM/MM screening mammo BI w/CAD: Z12.31 - Encounter for screening mammogram for malignant ... Copies to: Emilia Mason MD CLINICAL DATA: Screening for malignancy. BILATERAL SCREENING MAMMOGRAMS - FULL FIELD DIGITAL WITH TOMOSYNTHESIS AND CAD Tomosynthesis craniocaudal and mediolateral oblique views of both breasts were obtained using low- dose digital technique. Comparison is made to prior studies from 06/05/2023, 06/01/2022, 05/31/2021, and 03/19/2020. This examination was reviewed with the aid of CAD. There are scattered fibroglandular densities. Benign-appearing lymph nodes are noted along the chest wall. Benign-appearing calcifications are present. There is a biopsy clip on the left which is unchanged. Similar focal asymmetries are present. There are no dominant masses, typically malignant calcifications or architectural distortion. There has been no significant interval change. MM/MM screening mammo BI w/CAD IMPRESSION: NO MAMMOGRAPHIC EVIDENCE OF MALIGNANCY. ROUTINE FOLLOW-UP IS RECOMMENDED IN ONE YEAR. RESULT CODE: 2 Benign Findings(s) DENSITY CODE: 2 (approximately 25-50% glandular) There are scattered areas of fibroglandular density. FOLLOW UP: 1YR The false-negative rate of mammography is approximately 10-percent. Management of a palpable abnormality must be based on clinical grounds. Patient was entered into a reminder system with a target due date for the next mammogram. Impression dictated by: Leonel Earl M.D.06/06/2024 1:31 PM Dictation Location: [facility] Dictated By: Leonel Earl II, MD 06/06/24 1314 Signed By: 06/06/[address] [place] [address] Physician GroupMammography reportOrdered By: Leonel Earl on 37-27-9968Ljkasqfbdv imaging [facility] [address] [place] [address] Mammography Report Signed Patient: Dara Jiménez MR#: [id number] : 1945 Acct:[id number] Age/Sex: 78 / F Adm Date: 5 Loc: [place] Room: Type: [facility] Attending Dr: Emilia Mason MD Ordering Provider: Emilia Mason MD Date of Service: 06/06/24 Procedure(s): MM screening mammo BI w/CAD Accession Number(s): ([id number]) MM/MM screening mammo BI w/CAD: Z12.31 - Encounter for screeningmammogram for malignant ... Copies to: Emilia Mason MD~ CLINICAL DATA: Screening for malignancy. BILATERAL SCREENING MAMMOGRAMS - FULL FIELD DIGITAL WITH TOMOSYNTHESIS AND CAD Tomosynthesis craniocaudal and mediolateral oblique views of both breasts were obtained using low-dose digital technique. Comparison is made to prior studies from 06/05/2023, 06/01/2022, 05/31/2021, and03/19/2020. This examination was reviewed with the aid of CAD. There are scattered fibroglandular densities. Benign-appearing lymph nodes are noted along the chest wall. Benign-appearing calcifications are present. There is a biopsy clip on the left which is unchanged. Similar focal asymmetries are present. There are no dominant masses, typically malignant calcifications or architectural distortion. There has been no significant interval change. MM/MM screening mammo BI w/CAD IMPRESSION: NO MAMMOGRAPHIC EVIDENCE OF MALIGNANCY. ROUTINE FOLLOW-UP IS RECOMMENDED IN ONE YEAR. RESULT CODE: 2 Benign Findings(s) DENSITY CODE: 2 (approximately 25-50% glandular) There are scattered areas of fibroglandular density. FOLLOW UP: 1YR The false-negative rate of mammography is approximately 10-percent. Management of a palpable abnormality must be based on clinical grounds. Patient was entered into a reminder system with a target due date for the next mammogram. Impression dictated by: Leonel Earl M.D.06/06/2024 1:31 PM Dictation Location: [facility] Dictated By: Leonel Earl II, MD 06/06/24 1314 Signed By: 06/06/[address] [place] [address] Work Phone: [facility] Informationon [id number] Hospitals for ChildrenXR hip RT min 2V(w/wo pelvis)*on 55-84-2815KM hip RT min 2V(w/wo pelvis)*[facility] [place] [address] XRay Report Signed Patient: Dara Jiménez MR#: [id number] : 1945 Acct:[id number] Age/Sex: 77 / F ADM Date: 10/04/23 Loc: ICXD Room: Type: [facility] Attending Dr: Tony Damico MD Copies to: Tony Damico MD Ordering Provider: Tony Damico MD Date of Service: 10/04/23 XR/XR hip RT min 2V(w/wo pelvis)*: PAIN ([id number]) XR/XR si joints: PAIN ([id number]) XR/XR lumbar spine 2-3V*: PAIN LUMBAR SPINE - 3 views, SI joints 3 views, right hip 2 views CLINICAL HISTORY: Right posterior hip and lumbar spine pain which travels 2 right lateral knee. COMPARISON: Lumbar spine 08/29/2021 FINDINGS: Lumbar spine: Vertebral body and disc space heights appear maintained. Mild endplate and facet joint degenerative changes. Bones are grossly demineralized. SI joints: Mild degenerative changes of the SI joints without acute bony process. Sacral foramina appear grossly intact. Right hip: Mild degenerative changes of the right hip without acute bony process. XR/XR lumbar spine 2-3V* IMPRESSION: 1. LUMBAR SPINE DEMONSTRATES ENDPLATE AND FACET JOINT DEGENERATIVE CHANGES WITHOUT SIGNIFICANT DISC HEIGHT LOSS 2. SI JOINTS DEMONSTRATE DEGENERATIVE CHANGE. NO ACUTE BONY PROCESS. 3. RIGHT HIP DEMONSTRATES MILD DEGENERATIVE CHANGES WITHOUT ACUTE BONY PROCESS. Impression dictated by: Torey Cano Jr., D.ODaniel10/04/2023 3:54 PM Dictation Location: [place] [address] Transcribed By: [facility] 10/04/23 1554 Dictated By: Torey Cano Jr, DO 10/04/23 1551 Signed By: 10/04/23 1554[facility] Physician GroupCB AUTO DIFFon [id number] # 0.1 103/ulNormal0.0-0.1[facility] CenterComment on above:Performed By: #### CBC #### [facility] [address] [address] [address] Luis Cowansophils/100 WBC (Bld)0.7 %Normal0.2-2.0[facility] Comment on above:Performed By: #### CBC #### [facility] [address] [address] [address] Luis Mitchell #0.0 103/ulNormal0.0-0.7The [facility] HospitalComment on above: Performed By: #### CBC #### [facility] [address] [address] [address] Luis Ruizosinophils/100 WBC (Bld)0.5 %Critically low0.9-7.0The [facility] on above:Performed By: #### CBC #### [facility] [address] [place] [address] Dr. Luis Ruizrythrocyte distribution width (RBC) [Ratio]13.3 %Jcmjhl40.0-15.0 The [facility]itrick HospitalComment on above:Performed By: #### CBC #### [facility] [address] [place] [address] Dr. Luis EliHematocrit (Bld) [Volume fraction]39.6 %Zidvkl56.0-48.0The [facility] HospitalComment on above:Performed By: #### CBC #### [facility] [address] [place] [address] Dr. Luis EliHemoglobin (Bld) [Mass/Vol]12.8 g/kXZrithc93.0-16.0The [facility] Systemment on above:Performed By: #### CBC #### [facility] [address] [place] [address] Dr. Luis García #0.02 10e3/ulNormal0.00-0.03The [facility] on above:Performed By: #### CBC #### [facility] [address] [place] [address] Dr. Luis García %0.3 %Normal0.0-0.5The [facility] on above: Performed By: #### CBC #### [facility] [address] [place] [address] Dr. Luis SerranoH #2.1 103/ulNormal1.2-3.8The [facility] HospitalComc.[facility] on above:Performed By: #### CBC #### [facility] [address] [place] [address] Dr. Luis Vaughnmphocytes/100 WBC (Bld)27.9 %Wclmwo42.5-60.0The [facility] HospitalComment on above:Performed By: #### CBC #### [facility] [address] [address] [address] Luis Alvarez DIFF REQNONormalThe [facility]itrick HospitalComment on above: Performed By: #### CBC #### [facility] [address] [place] [address] Dr. Luis Villasenor (RBC) [Entitic mass]30.8 fbShrkxw29.7-34.0The [facility] HospitalComment on above:Performed By: #### CBC #### [facility] [address] [place] [address] Dr. Luis Villasenor (RBC) [Mass/Vol]32.3 g/rCVflwlo45.9-35.2The [facility] HospitalComment on above:Performed By: #### CBC #### [facility] [address] [place] [address] Dr. Luis Villasenor (RBC) [Entitic vol]95.2 lSYbfbrw47.0-99.0The [facility] HospitalComment on above:Performed By: #### CBC #### [facility] [address] [place] [address] Dr. Luis Monk #0.5 103/ulNormal0.3-0.8The [facility] HospitalComment on above:Performed By: #### CBC #### [facility] [address] [place] [address] Dr. Luis Wheelerocytes/100 WBC (Bld)6.9 %Normal1.7-12.0[facility] Comment on above:Performed By: #### CBC #### [facility] [address] [place] [address] Dr. Luis Jiang #4.9 103/ulNormal1.4-6.5The [facility] HospitalComment on above:Performed By: #### CBC #### [facility] [address] [place] [address] Dr. Luis Alejandrautrophils/100 WBC (Bld)63.7 %Vxqsvj56.0-75.0[facility] on above:Performed By: #### CBC #### [facility] [address] [place] [address] Dr. Luis Cohenlet mean volume (Bld) [Entitic vol]10.1 fLNormal9.5-13.5The [facility] HospitalComc.[facility] on above:Performed By: #### CBC #### [facility] [address] [place] [address] Dr. Luis EliPLT303 103/ssJyzmmx903-876Ipp [facility] on above: Performed By: #### CBC #### [facility] [address] [place] [address] Dr. Luis EliRBC4.16 106/ulCritically low4.20-5.40The [facility] on above:Performed By: #### CBC #### [facility] [address] [place] [address] Dr. Luis EliWBC7.6 103/ulNormal4.0-11.0The [facility] on above: Performed By: #### CBC #### [facility] [address] [place] [address] Dr. Luis HernandezID PROFILEon [id number]-HDL RATIO [facility] CampusComc.[facility] on above:Result Comment: 3.3 - 4.4 LOW RISK 4.4 - 7.1 AVERAGE RISK 7.1 - 11.0 MODERATE RISK >11.0 HIGH RISKPerformed By: #### CMP, LIPID #### [facility] [address] [place] [address] Dr. Luis EliCholesterol [Mass/Vol]280 mg/dLCritically high<=200The [facility] on above:Performed By: #### CMP, LIPID #### [facility] [address] [place] [address] Dr. Luis Roblesesterol in HDL [Mass/Vol]84 mg/dLCritically wyst66-29Wua [facility] on above:Performed By: #### CMP, LIPID #### [facility] [address] [address] [address] Luis EliCholesterol in LDL [Mass/Vol]180.2 mg/dLVan Wert County HospitalComment on above:Performed By: #### CMP, LIPID #### [facility] [address] [address] [address] Luis Roblesesterenrique.total/Cholesterol in HDL [Mass ratio]3.3 {ratio} NormalThe [facility] HospitalComment on above:Performed By: #### CMP, LIPID #### [facility] [address] [address] [address] Luis Gautam NORMAL> or = 60 mg/dl - LOW CARDIOVASCULAR RISK <40 mg/dl - HIGH CARDIOVASCULAR RISKVan Wert County HospitalComc.s. [facility] on above:Performed By: #### CMP, LIPID #### [facility] [address] [place] [address] Dr. Luis Vitale CALC NORMALSEE BELOWVan Wert County HospitalComment on above:Result Comment: <100 mg/dl OPTIMAL 100 - 129 mg/dl NEAR OR ABOVE OPTIMAL 130 - 159 mg/dl BORDERLINE HIGH 160 - 189 mg/dl HIGH >190 mg/dl VERY HIGH Performed By: #### CMP, LIPID #### [facility] [address] [place] [address] Dr. Luis EliTriglyceride [Mass/Vol]79 mg/dLNormal<=150[facility] Comment on above:Performed By: #### CMP, LIPID #### [facility] [address] [place] [address] Dr. Lius EliVLDL CALC15.8 mg/dLNoSelect Medical Specialty Hospital - ColumbusComc.s. [facility] on above: Performed By: #### CMP, LIPID #### [facility] [address] [place] [address] Dr. Luis EliPROKimberlee 14(COMP METB)on [id number] [Mass/Vol]3.4 g/dLNormal 3.4-5.0The [facility] HospitalComment on above:Performed By: #### CMP, LIPID #### [facility] [address] [address] [address] Luis EliAlbumin/Globulin [Mass ratio]0.8 {ratio}NormalThe [facility] HospitalComment on above:Performed By: #### CMP, LIPID #### [facility] [address] [address] [address] Luis DevineP [Catalytic activity/Vol]79 U/SEnmzou82-616Oxu [facility] HospitalComment on above:Performed By: #### CMP, LIPID #### [facility] [address] [address] [address] Luis DevineT [Catalytic activity/Vol]23 U/HAiwcfr60-43Ikh [facility] HospitalComment on above:Performed By: #### CMP, LIPID #### [facility] [address] [place] [address] Dr. Luis Greenon gap [Moles/Vol]12.5 mmol/LNormalThe [facility] Comment on above:Performed By: #### CMP, LIPID #### [facility] [address] [address] [address] Luis EliAST [Catalytic activity/Vol]18 U/AEyvmtf50-99Oth [facility] HospitalComment on above:Performed By: #### CMP, LIPID #### [facility] [address] [place] [address] Dr. Luis EliBilirubin [Mass/Vol]0.6 mg/dLNormal0.2-1.0[facility] Comment on above:Performed By: #### CMP, LIPID #### [facility] [address] [place] [address] Dr. Luis EliCalcium [Mass/Vol]8.8 mg/dLNormal8.5-10.1The [facility] Comment on above:Performed By: #### CMP, LIPID #### [facility] [address] [place] [address] Dr. Luis EliChloride [Moles/Vol]106 mmol/TNrcvsw78-755Bzk [facility] Comment on above:Performed By: #### CMP, LIPID #### [facility] [address] [address] [address] Luis EliCO2 [Moles/Vol]27.8 mmol/KHkyylv38.0-32.0The [facility] Comment on above:Performed By: #### CMP, LIPID #### [facility] [address] [address] [address] Luis EliCreatinine [Mass/Vol]0.88 mg/dLNormal0.55-1.02The [facility] HospitalComment on above:Performed By: #### CMP, LIPID #### [facility] [address] [address] [address] Luis RuizGFR-AF EQUATORIAL GUINEAN>60Normal>=60The [facility] HospitalComment on above:Performed By: #### CMP, LIPID #### [facility] [address] [address] [address] Luis RuizGFR-NON AF EQUATORIAL GUINEAN>60Normal>=60The [facility] HospitalComment on above:Performed By: #### CMP, LIPID #### [facility] [address] [place] [address] Dr. Luis EliGlobulin (S) [Mass/Vol]4.1 g/dLNormalThe [facility] HospitalComment on above:Performed By: #### CMP, LIPID #### [facility] [address] [address] [address] Luis EliGlucose [Mass/Vol]95 mg/rADgylmm25-429Uif [facility] Comment on above:Performed By: #### CMP, LIPID #### [facility] [address] [address] [address] Luis EliPotassium [Moles/Vol]4.3 mmol/LNormal3.5-5.1The [facility] Comment on above:Performed By: #### CMP, LIPID #### [facility] [address] [place] [address] Dr. Luis EliProtein [Mass/Vol]7.5 g/dLNormal6.4-8.2The [facility] Comment on above:Performed By: #### CMP, LIPID #### [facility] [address] [address] [address] Luis Rushdium [Moles/Vol]142 mmol/ROajbix985-562Rtp [facility] Comment on above:Performed By: #### CMP, LIPID #### [facility] [address] [address] [address] Luis Benites nitrogen [Mass/Vol]19.0 mg/dLCritically high7.0-18.0The [facility] HospitalComment on above:Performed By: #### CMP, LIPID #### [facility] [address] [address] [address] Luis Benites nitrogen/Creatinine [Mass ratio]21.6 mg/mgNormalThe [facility] HospitalComment on above:Performed By: #### CMP, LIPID #### [facility] [address] [place] [address] Dr. Luis Cortés AUTO DIFFon [id number] #0.1 103/ulNormal0.0-0.1The [facility] HospitalComment on above:Performed By: #### CBC #### [facility] [address] [address] [address] Luis EliBasophils/100 WBC (Bld)0.6 %Normal0.2-2.0[facility] Comment on above:Performed By: #### CBC #### [facility] [address] [place] [address] Dr. Luis Mitchell #0.1 103/ulNormal0.0-0.7The [facility] HospitalComc.[facility] on above: Performed By: #### CBC #### [facility] [address] [place] [address] Dr. Luis Ruizosinophils/100 WBC (Bld)1.3 %Normal0.9-7.0[facility] Comment on above:Performed By: #### CBC #### [facility] [address] [place] [address] Dr. Luis Ruizrythrocyte distribution width (RBC) [Ratio]13.8 %Xseopu03.0-15.0 [facility] HospitalComment on above:Performed By: #### CBC #### [facility] [address] [place] [address] Dr. Luis Saucedoatocrit (Bld) [Volume fraction]37.6 %Gnvgar81.0-48.0The [facility] HospitalComment on above:Performed By: #### CBC #### [facility] [address] [place] [address] Dr. Luis EliHemoglobin (Bld) [Mass/Vol]12.2 g/hWTqvaqp50.0-16.0The [facility] HospitalComment on above:Performed By: #### CBC #### [facility] [address] [place] [address] Dr. Luis García #0.02 10e3/ulNormal0.00-0.03The [facility] HospitalComc.[facility] on above:Performed By: #### CBC #### [facility] [address] [place] [address] Dr. Luis García %0.2 %Normal0.0-0.5The [facility] HospitalComment on above: Performed By: #### CBC #### [facility] [address] [place] [address] Dr. Luis Rushing #2.4 103/ulNormal1.2-3.8The [facility] on above:Performed By: #### CBC #### [facility] [address] [place] [address] Dr. Luis Serranohocytes/100 WBC (Bld)27.7 %Qnyyro33.5-60.0The [facility] HospitalComment on above:Performed By: #### CBC #### [facility] [address] [place] [address] Dr. Luis BolanosUAL DIFF REQNONormalThe [facility] HospitalComment on above: Performed By: #### CBC #### [facility] [address] [place] [address] Dr. Luis Reyes (RBC) [Entitic mass]29.6 dxDuatnu22.7-34.0The [facility] HospitalComment on above:Performed By: #### CBC #### [facility] [address] [place] [address] Dr. Luis Villasenor (RBC) [Mass/Vol]32.4 g/vQQaelhy20.9-35.2The [facility] HospitalComment on above:Performed By: #### CBC #### [facility] [address] [place] [address] Dr. Luis Estrada (RBC) [Entitic vol]91.3 lRNbayus52.0-99.0The [facility] HospitalComment on above:Performed By: #### CBC #### [facility] [address] [place] [address] Dr. Luis Monk #0.6 103/ulNormal0.3-0.8The [facility] HospitalComment on above:Performed By: #### CBC #### [facility] [address] [place] [address] Dr. Luis Wheelerocytes/100 WBC (Bld)6.5 %Normal1.7-12.0[facility] Comment on above:Performed By: #### CBC #### [facility] [address] [place] [address] Dr. Luis Jiang #5.5 103/ulNormal1.4-6.5The [facility] HospitalComment on above:Performed By: #### CBC #### [facility] [address] [place] [address] Dr. Luis Stocktonophils/100 WBC (Bld)63.7 %Truawh54.0-75.0The [facility] HospitalComment on above:Performed By: #### CBC #### [facility] [address] [place] [address] Dr. Luis Cohenlet mean volume (Bld) [Entitic vol]10.1 fLNormal9.5-13.5The [facility] HospitalComment on above:Performed By: #### CBC #### [facility] [address] [place] [address] Dr. Luis MonaeT312 103/qrSudebv878-358Buu [facility] on above: Performed By: #### CBC #### [facility] [address] [place] [address] Dr. Luis EliRBC4.12 106/ulCritically low4.20-5.40The [facility] on above:Performed By: #### CBC #### [facility] [address] [place] [address] Dr. Luis EliWBC8.6 103/ulNormal4.0-11.0The [facility] on above: Performed By: #### CBC #### [facility] [address] [place] [address] Dr. Luis HernandezID PROFILEon [id number]-HDL RATIO NORMSUniversity Hospitals Geneva Medical CenterComc.s. [facility] on above:Result Comment: 3.3 - 4.4 LOW RISK 4.4 - 7.1 AVERAGE RISK 7.1 - 11.0 MODERATE RISK >11.0 HIGH RISKPerformed By: #### CMP, LIPID #### [facility] [address] [place] [address] Dr. Luis EliCholesterol [Mass/Vol]271 mg/dLCritically high<=200The [facility] on above:Performed By: #### CMP, LIPID #### [facility] [address] [place] [address] Dr. Luis EliCholesterol in HDL [Mass/Vol]90 mg/dLCritically nvsd58-70Gul [facility] on above:Performed By: #### CMP, LIPID #### [facility] [address] [place] [address] Dr. Luis EliCholesterol in LDL [Mass/Vol]163.6 mg/dLProMedica Memorial Hospital on above:Performed By: #### CMP, LIPID #### [facility] [address] [place] [address] Dr. Luis Roblesesterenrique.total/Cholesterol in HDL [Mass ratio]3.0 {ratio} NormalThe [facility] HospitalComment on above:Performed By: #### CMP, LIPID #### [facility] [address] [place] [address] Dr. Luis Gautam NORMAL> or = 60 mg/dl - LOW CARDIOVASCULAR RISK <40 mg/dl - HIGH CARDIOVASCULAR RISKVan Wert County HospitalComment on above:Performed By: #### CMP, LIPID #### [facility] [address] [address] [address] Luis EliLDL CALC NORMALSEE BELOWNoSelect Medical Specialty Hospital - ColumbusComment on above:Result Comment: <100 mg/dl OPTIMAL 100 - 129 mg/dl NEAR OR ABOVE OPTIMAL 130 - 159 mg/dl BORDERLINE HIGH 160 - 189 mg/dl HIGH >190 mg/dl VERY HIGH Performed By: #### CMP, LIPID #### [facility] [address] [place] [address] Dr. Luis EliTriglyceride [Mass/Vol]87 mg/dLNormal<=150The [facility] Comment on above:Performed By: #### CMP, LIPID #### [facility] [address] [place] [address] Dr. Luis RicardoLDL CALC17.4 mg/dLNoSelect Medical Specialty Hospital - ColumbusComment on above: Performed By: #### CMP, LIPID #### [facility] [address] [place] [address] Dr. Luis EliPROF 14(COMP METB)on [id number] [Mass/Vol]3.4 g/dLNormal 3.4-5.0[facility] on above:Performed By: #### CMP, LIPID #### [facility] [address] [place] [address] Dr. Luis EliAlbumin/Globulin [Mass ratio]0.9 {ratio}NormalThe [facility] HospitalComc.s. [facility] on above:Performed By: #### CMP, LIPID #### [facility] [address] [place] [address] Dr. Luis DevineP [Catalytic activity/Vol]73 U/GGmtvth81-991Opq [facility] Systemment on above:Performed By: #### CMP, LIPID #### [facility] [address] [address] [address] Luis DevineT [Catalytic activity/Vol]14 U/MJhzxrs82-67Cga [facility] HospitalComment on above:Performed By: #### CMP, LIPID #### [facility] [address] [address] [address] Luis EliAnion gap [Moles/Vol]10.1 mmol/LNormalTr[facility] Comment on above:Performed By: #### CMP, LIPID #### [facility] [address] [address] [address] Luis EliAST [Catalytic activity/Vol]15 U/MGrnekd75-88Tur [facility] HospitalComment on above:Performed By: #### CMP, LIPID #### [facility] [address] [place] [address] Dr. Luis EliBilirubin [Mass/Vol]0.4 mg/dLNormal0.2-1.0[facility] Comment on above:Performed By: #### CMP, LIPID #### [facility] [address] [address] [address] Luis EliCalcium [Mass/Vol]8.5 mg/dLNormal8.5-10.1[facility] Comment on above:Performed By: #### CMP, LIPID #### [facility] [address] [place] [address] Dr. Luis EliChloride [Moles/Vol]105 mmol/WRhbqsl98-938Rlf [facility] Comment on above:Performed By: #### CMP, LIPID #### [facility] [address] [address] [address] Luis EliCO2 [Moles/Vol]28.2 mmol/HNltpkc76.0-32.0[facility] Comment on above:Performed By: #### CMP, LIPID #### [facility] [address] [address] [address] Luis EliCreatinine [Mass/Vol]0.76 mg/dLNormal0.55-1.02The [facility] HospitalComment on above:Performed By: #### CMP, LIPID #### [facility] [address] [address] [address] Luis RuizGFR-AF EQUATORIAL GUINEAN>60Normal>=60The [facility] HospitalComment on above:Performed By: #### CMP, LIPID #### [facility] [address] [address] [address] Luis RuizGFR-NON AF EQUATORIAL GUINEAN>60Normal>=60The [facility] HospitalComment on above:Performed By: #### CMP, LIPID #### [facility] [address] [address] [address] Luis EliGlobulin (S) [Mass/Vol]3.9 g/dLNormalThe [facility] HospitalComment on above:Performed By: #### CMP, LIPID #### [facility] [address] [place] [address] Dr. Luis EliGlucose [Mass/Vol]101 mg/qFRmodri00-561IuiTrinity Health System [facility] Comment on above:Performed By: #### CMP, LIPID #### [facility] [address] [address] [address] Luis EliPotassium [Moles/Vol]4.3 mmol/LNormal3.5-5.1The [facility] Comment on above:Performed By: #### CMP, LIPID #### [facility] [address] [address] [address] Luis EliProtein [Mass/Vol]7.3 g/dLNormal6.4-8.2The [facility] Comment on above:Performed By: #### CMP, LIPID #### [facility] [address] [address] [address] Luis EliSodium [Moles/Vol]139 mmol/HRlcgqe844-488Gid [facility] Comment on above:Performed By: #### CMP, LIPID #### [facility] [address] [address] [address] Luis EliUrea nitrogen [Mass/Vol]16.0 mg/dLNormal7.0-18.0The [facility] HospitalComment on above:Performed By: #### CMP, LIPID #### [facility] [address] [address] [address] Luis EliUrea nitrogen/Creatinine [Mass ratio]21.1 mg/mgVan Wert County HospitalComment on above:Performed By: #### CMP, LIPID #### [facility] [address] [address] [address] Luis EliFormson [id number] [id number]#[id number]:127CentervillePhysician Referralon [id number] Referral [id number]:127CentervilleAmbulatory Clinical Summaryon [id number] Clinical Summary {1m-l1-j7-x8-cr-9t-66-39-r9-80-03-7q-f8-96-60-08}CD:[id number]atient Educationon 40-55-4168Qdurtht EducationObstetrics and Gynecology Overactive Bladder, Adult Overactive bladder refers to a condition in which a person has a sudden need to pass urine. The person may leak urine if he or she cannot get to the bathroom fast enough (urinary incontinence). A person with this condition may also wake up several times in the night to go to the bathroom. Overactive bladder is associated with poor nerve signals between your bladder and your brain. Your bladder may get the signal to empty before it is full. You may also have very sensitive muscles thatmake your bladder squeeze too soon. These symptoms might interfere with daily work or social activities. What are the causes? This condition may be associated with or caused by: ? Urinary tract infection. ? Infection of nearby tissues, such as the prostate. ? Prostate enlargement. ? Surgery on the uterus or urethra. ? Bladder stones, inflammation, or tumors. ? Drinking too much caffeine or alcohol. ? Certain medicines, especially medicines that get rid of extra fluid in the body (diuretics). ? Muscle or nerve weakness, especially from: ? A spinal cord injury. ? Stroke. ? Multiple sclerosis. ? Parkinson's disease. ? Diabetes. ? Constipation. What increases the risk? You may be at greater risk for overactive bladder if you: ? Are an older adult. ? Smoke. ? Are going through menopause. ? Have prostate problems. ? Have a neurological disease, such as stroke, dementia, Parkinson's disease, or multiple sclerosis(MS). ? Eat or drink things that irritate the bladder. These include alcohol, spicy food, and caffeine. ? Are overweight or obese. What are the signs or symptoms? Symptoms of this condition include: ? Sudden, strong urge to urinate. ? Leaking urine. ? Urinating 8 or more times a day. ? Waking up to urinate 2 or more times a night. How is this diagnosed? Your health care provider may suspect overactive bladder based on your symptoms. He or she will diagnose this condition by: ? A physical exam and medical history. ? Blood or urine tests. You might need bladder or urine tests to help determine what is causing your overactive bladder. You might also need to see a health care provider who specializes in urinary tract problems (urologist). How is this treated? Treatment for overactive bladder depends on the cause of your condition and whether it is mild or severe. You can also make lifestyle changes at home. Options include: ? Bladder training. This may include: ? Learning to control the urge to urinate by following a schedule that directs you to urinate at regular intervals (timed voiding). ? Doing Kegel exercises to strengthen your pelvic floor muscles, which support your bladder. Toningthese muscles can help you control urination, even if your bladder muscles are overactive. ? Special devices. This may include: ? Biofeedback, which uses sensors to help you become aware of your body's signals. ? Electrical stimulation, which uses electrodes placed inside the body (implanted) or outside the body. These electrodes send gentle pulses of electricity to strengthen the nerves or muscles that control the bladder. ? Women may use a plastic device that fits into the vagina and supports the bladder (pessary). ? Medicines. ? Antibiotics to treat bladder infection. ? Antispasmodics to stop the bladder from releasing urine at the wrong time. ? Tricyclic antidepressants to relax bladder muscles. ? Injections of botulinum toxin type A directly into the bladder tissue to relax bladder muscles. ? Lifestyle changes. This may include: ? Weight loss. Talk to your health care provider about weight loss methods that would work best foryou. ? Diet changes. This may include reducing how much alcohol and caffeine you consume, or drinking fluids at different times of the day. ? Not smoking. Do not use any products that contain nicotine or tobacco, such as cigarettes and e-cigarettes. If you need help quitting, ask your health care provider. ? Surgery. ? A device may be implanted to help manage the nerve signals that control urination. ? An electrode may be implanted to stimulate electrical signals in the bladder. ? A procedure may be done to change the shape of the bladder. This is done only in very severe cases. Follow these instructions at home: Lifestyle ? Make any diet or lifestyle changes that are recommended by your health care provider. These may include: ? Drinking less fluid or drinking fluids at different times of the day. ? Cutting down on caffeine or alcohol. ? Doing Kegel exercises. ? Losing weight if needed. ? Eating a healthy and balanced diet to prevent constipation. This may include: ? Eating foods that are high in fiber, such as fresh fruits and vegetables, whole grains, and beans. ? Limiting foods that are high in fat and processed sugars, such as fried and sweet foods. General instructions ? Take ove (more content not included)...[facility] Office[facility]Clinic Noteon 24-06-2730O[facility]xc Office/Clinic NoteHPI Staff TRAVELING ACCOUNTANT referred by Dr. Emilia Mason due to OAB. Pt states that in 1992 her uterus was removed and during [place] Pt states that she had issues with UTI's since the procedure. She said it cleared up for years and then she was Treated in November for her first UTI in a long time. Pt was treated with Cipro for 10 days and she does not feel that she is completely over the infection. UA is clear. Pt states that she can void and 10-15 mins later she can void again. PVR 43ml. Pt has tried OAB meds in the past but does not remember the names of them. Myrbetriq samples were given to her by PCP and this helps her but it it is so expensive. Dysuria: no pain or burning- pt states that she has burning with UTI Incomplete bladder emptying: does not feel like she is completely emptying Hematuria: denies any blood in urine, UA is clear Frequency: increased Urgency: mild sx Nocturia: 2-5x and this has been going on since the Procedure in 1992. Stream: average/weak stream, severe hesitation, moderate intermittent stream, moderate straining Post void dripping: occasionally Wearing pads/ Depends: wears panty liners intermittently Urge incontinence: none Stress incontinence: occasionally Incontinence without Sensory Awareness: none Abdominal pain: no pain but does have pressure- She has had the pressure intermittently for years Flank pain: none History of Present Illness Reviewed ua & outside records. There have been no associated fever, chills, flank pain or bloodin the urine. Pt. denies any pain/burning with urination at this time. I have reviewed and verified the staff HPI to be accurate for this encounter. I have reviewed the previous health record information and history for this patient from referring provider. Review of Systems ROS - Provider Constitutional: denies weight loss, denies hot flashes. Eyes: denies eye problems. Gastrointestinal: denies nausea, denies vomiting. Cardiovascular: denies chest pain or angina. Integumentary: no dryness Musculoskeletal: denies musculoskeletal symptoms. ENMT: denies otolaryngeal symptoms. Respiratory: no shortness of breath. Heme/Lymph: denies easy bleeding tendency, denies easy bruising tendency. Psychiatric: no confusion, no anxiety. Genitourinary: see HPI Physical Exam General Appearance: alert , no acute distress, well nourished, well developed female. Head: normocephalic . Eyes: normal orbit and globe. ENMT: normal examination of external ears. Chest: Lungs CTA, respirations non labored . Cardiovascular: regular rate and rhythm. Abdomen: soft, non distended, no tenderness, no mass or organomegaly, no hernia. Genitourinary: bladder nonpalpable, no flank tenderness. Lymph Nodes: unremarkable palpation of the cervical area. Skin: warm, dry, no bruising. Psychiatric: cooperative, affect appropriate for age, normal judgement, euthymic mood. Assessment/Plan 75 yo F with hx hysterectomy complicated by bladder injury s/p repair in , with urgency and recurrent UTIs since. 1. OAB (overactive bladder) (N32.81: Overactive bladder) PVR today 43ml. Mild urgency & frequency has increased. Pt. has been given samples of Myrbetriq in the past andthey have helped her symptoms tremendously. -Discussed Cysto/Botox, pt. will call the office if she decides to proceed. Would undergo diagnostic cysto first. -Will start Myrbetriq 25mg ER QD. Discussed the medication side effects, and the patient will monitor closely for these, as well as for symptom improvement. If severe side effects occur, the medication should be stopped and the office notified. Good RX provided -Pt. advised to start Kegel exercises- patient given patient education on this. Declined formal PFPT -Will start Estrace 0.1gm cream, pt. to use a pea size amount on the outer urethra 3x a week (Mon,Wed,Fri) and twice a week. Discussed the medication side effects, and the patient will monitor closely for these, as well as for symptom improvement. If severe side effects occur, the medication shouldbe stopped and the office notified. 2. Recurrent UTI (N39.0: Urinary tract infection, site not specified) Pt. has had issues with UTIs since her surgery in 1992. Pt. had her first UTI in years back, but last was in November 2020, pt. was treated with Cipro x10 days but pt. feels she still has infection. Other than recent, was not having them frequently. UA today NEG for infection or blood. 10% of women over the age of 60 will have recurrent urinary tract infection - 2 or more urinary tract infection in 6 months or 3 or more per year. We discussed the presence of vaginal atrophy on physical examination. I explained the lack of estrogen secondary to menopause causes changes in the vaginal epithelium that can predispose to lower urinary tract symptoms, vaginal discomfort, urinary incontinence, dyspareunia, and recurrent urinary tract infections. Because of these changes to the vaginal (more content not included)...[place]ervilleComment on above:Result Comment: Electronically Signed By: Allison Horton MD.br\Date and Time Signed: 02/02/21 11:57EDT\.br\Electronically Co- Signed By: Mansi Hernandez.maude\Date and Time Co-Signed: 02/02/21 11:49 EDT OVER READ - NCon [id number] READ - NCDATE OF EXAM: Oct 24 2016 1:33PMCLINICAL HISTORY/ Name: MIRZA JIMÉNEZ:JOVAN- NC; 10/24/2016 1:33 pmINDICATION:ccta. Chest pain.COMPARISON:None. CLINICIAN:MADIE CUEVAS:Cardiac CTA was performed following intravenous administration of 80 mL Isovue 370 contrast. CTA portion will be interpreted separately. Images are submitted for over- read.FINDINGS:No lymphadenopathy is seen. No pericardial effusion. Included esophageal segment is unremarkable. Included portion of the upper abdomen is unremarkable. Mild basilar atelectasis is present. No pleural effusion or pneumothorax. Minimal anterior endplate spurring present in the lower thoracic spine.CONCLUSION: IMPRESSION:No significant incidental findings.This interpretation, provided by the radiologists of [facility], excludes evaluation of the cardiovascular system, which iscovered in a separate report issued by the ordering cardiologists. The radiologists of [facility] have no responsibilityfor evaluating the structures of the cardiovascular system.[facility] Vital Signs Date TimeVital SignValuePerforming CqejhyyreCgyciwwz37-25-6560 10:33-0400 Diastolic blood mm[Hg]Emilia Mason MD Work Phone: 1(327)342-[address] [place], [place] 1951810-08-2025 10:33-0400 Systolic blood cyuxlszy042 mm[Hg]Emilia Mason MD Work Phone: [phone])[phone]10-08-2025 10:26-0400 Body .86 cmEmilia Mason MD Work Phone: 1(612)795-[address] [place], [place] 1951810-08-2025 10:26-0400 Body mass index (BMI) [Ratio]27.3 kg/g9HhpxjsEmilia Mason MD Work Phone: [phone])[address]10-08-2025 10:26-0400 Body vsfifa55.34 kgEmilia Mason MD Work Phone: 1([phone])[address]10-08-2025 10:26-0400 Heart rate79 /minEmilia Mason MD Work Phone: [phone]10-08-2025 10:26-0400 Respiratory rate14 /minEmilia Mason MD Work Phone: [facility]10-08-2025 10:26-0400 SaO2% (BldA) [Mass fraction]98 %Emilia Mason MD Work Phone: [facility]07-17-2025 10:29-0400 Body xyzuqb050.9 cmTabby Levin MD Work Phone: 1([phone])[address] [place], [place] 9868607-17-2025 10:29-0400Body mass index (BMI) [Ratio]26.86 kg/t6TnfmwieTabby Levin MD Work Phone: 1(645)[address] [place], [place] 9868607-17-2025 10:29-0400Body .33 kgTabby Levin MD Work Phone: 1(206)[address] [place], [place] 9868607-17-2025 10:29-0400Diastolic blood kjbjbmoo76 mm[Hg]Tabby Levin MD Work Phone: 1(045)[address] [place], [place] 9868607-17-2025 10:29-0400Systolic blood yyhznvxo907 mm[Hg]Tabby Levin MD Work Phone: 1(833)[address] [place], [place] 9868606-04-2025 11:42-0400Body vyurhj077.9 cmTabby Levin MD Work Phone: 1(981)[address] [place], [place] 9868606-04-2025 11:42-0400Body mass index (BMI) [Ratio]26.86 kg/u1JvpobalTabby Levin MD Work Phone: 1(720)[address] [place], [place] 9868606-04-2025 11:42-0400Body ginylu73.33 kgTabby Levin MD Work Phone: 1(287)[address] [place], [place] 9868603-17-2025 13:35-0400Body cjanfw488.86 cmEmilia Mason MD Work Phone: [facility]03-17-2025 13:35-0400 Body mass index (BMI) [Ratio]27.4 kg/p3FmgwjiEmilia Mason MD Work Phone: [phone]03-17-2025 13:35-0400 Body .68 kgEmilia Mason MD Work Phone: [facility]03-17-2025 13:35-0400 Diastolic blood ldexnpbv59 mm[Hg]Emilia Mason MD Work Phone: [facility]03-17-2025 13:35-0400 Heart rate80 /Abundio Mason MD Work Phone: [facility]03-17-2025 13:35-0400 Systolic blood iqqlbvob289 mm[Hg]Emilia Mason MD Work Phone: [facility]10-07-2024 11:37-0400 Body bwvxui028.86 cmCl[facility]ont [facility]10-07-2024 11:37-0400Body mass index (BMI) [Ratio]25.6 kg/w4KyvvvpkndClermont County Hospital10-07-2024 11:37-0400Body yjapys46.6 kgClermont County Hospital10-07-2024 11:37-0400Diastolic blood cboslqwi60 mm[Hg][facility] 01-14-2024 11:37-0400Heart rate72 /[facility] 01-14-2024 11:37-0400Respiratory rate16 /[facility] 01-14-2024 11:37-2378EvK6% (BldA) [Mass fraction]97 %[facility]10-07-2024 11:37-0400Systolic blood mm[Hg][facility]11-28-2023 11:00-0500Body .86 cmEmilia Mason Other [employer] Other [phone] 11:00-0500Body mass index (BMI) [Ratio] 26.25 kg/s8ZftnfhEmilia Mason Other [employer] Other 11-28-2023 11:00-0500Body kosnhj95.97 kgEmilia Mason Other [facility] [employer] Other 11-28-2023 11:00-0500Diastolic blood sahogbyv85 mm[Hg] Emilia Marlon Other [facility] [employer] Other 11-28-2023 11:00-0500Systolic blood tohcrrdv795 mm[Hg] Emilia Marlon Other [facility] [employer] Other Encounters Encounter DateEncounter TypeCare ProviderFacilityStart: 01-14-2025 End: 88-72-5056kqbuhammibPeidlq E Braun MD Work Phone: [facility] Work Phone: Start: 01-14-2025 End: 02-22-6555Bmwjvgo encounter procedureEmilia Mason MD-[facility] Work Phone: Start: 10-23-2024 End: 73-88-2167Ertbba Gris Levin MD Work Phone: [facility] NEUROLOGYStart: 10-23-2024 End: 48-91-4481Boirnjyolis Levin MD Work Phone: [facility] NEUROLOGYStart: 10-23-2024 End: 20-92-5994Dsgnbn outpatient visit 25 minutesTabby Levin MD Work Phone: [facility] SWS NEURComment on above:Cervical radiculopathy (Primary Dx)Start: 10-23-2024 End: 19-31-5483whpkwahtyvKTPXHBW W BAUERNot AvailableStart: 09-10-2024 End: 53-15-2351Wyfdyxsamson Levin MD Work Phone: [facility]oms NEUROLOGYStart: 09-10-2024 End: 57-57-2614Ifpfcz Gris Levin MD Work Phone: [facility] BM NEUROLOGYStart: 09-10-2024 End: 84-69-4662Pimwxj outpatient visit 25 minutesTabby Levin MD Work Phone: [facility] SWS NEURComment on above:Cervical radiculopathy (Primary Dx)Start: 09-10-2024 End: 87-39-6058vnwvkknimzVTSZINS W BAUERNot AvailableStart: 06-23-2024 End: 98-80-7037udflrfycphIrdldb E Braun MD Work Phone: [facility] Work Phone: Start: 06-23-2024 End: 34-39-3759Lptvken encounter procedureEmilia Mason MD Work Phone: [facility] Work Phone: Start: 06-06-2024 End: 88-87-1563Fuaqfon encounter procedureEmilia Mason MD Work Phone: [facility] Work Phone: Start: 06-06-2024 End: 57-32-3175dadvjknpdgLnyxwp E Braun MD Work Phone: [facility] Work Phone: Start: 35-79-6735Xjapcnb encounter procedureEmilia Mason MD Work Phone: [facility] 01-14-2024 End: 85-67-8837uiquvgxjicRiaqoyvcpUniversity [facility] Work Phone: Start: 01-14-2024 End: 01-41-4627Cccdvdk encounter procedureC[facility] Work Phone: Start: 07-08-0379Wtg-patient / Non-visitC[facility] Demetrius Work Phone: Start: 11-79-0461Jtn-patient / Non-visitC[facility] Work Phone: start: 01-07-2024 End: 65-20-9788Mllcca flowsheetNatalie A Felter REPRODUCTION TECHNICIAN-MULTICULTURAL SERVICES LIBRARIAN Work Phone: [facility] SWS DERMStart: 01-07-2024 End: 64-83-9589Sgclaa flowsheetNatalie A Felter REPRODUCTION TECHNICIAN-MULTICULTURAL SERVICES LIBRARIAN Work Phone: NO[facility] SWS DERMStart: 01-07-2024 End: 30-28-1559Kzoupe outpatient new 30 minutesNatalie A Felter REPRODUCTION TECHNICIAN-MULTICULTURAL SERVICES LIBRARIAN Work Phone: [facility] SWS DERMComment on above:Psoriasis vulgaris (CMS/HCC); Inflamed seborrheic keratosisStart: 01-07-2024 End: 68-68-4448dmoxktlkqtAAHTLQF A FELTERNot AvailableStart: 10-04-2023 End: 23-79-2250Pszxcmn encounter procedureMD Emilia Mason Work Phone: [facility] [address] Work Phone: Start: 10-04-2023 End: 60-22-5521nzfcjzmhbjSC Emilia Mason Work Phone: [facility] Work Phone: Start: 05-21-2023 End: 23-85-5934pbivdsjtgxOvszzr Braun Other [employer] Other Start: 37-26-1860Nripzlwdm encounterEmilia Adair [facility]: 03-22-2023 End: 85-05-6934wwjfqzzilnUstsuw Braun Other [employer] Other Start: 44-97-3272Mgiungpbi encounterEmilia Adair Referral CoordinatorStart: 03-09-2023 End: 57-80-1538qgthfonfzbOptmzp Braun Other [employer] Other Start: 79-59-4180Nmdasntmj encounterMarcia BraunBAN[facility]Start: 03-06-2023 End: 69-81-4960gfggpqrbusQwfpap Mason Other [employer] Other Start: 70-97-3229Whasel outpatient visit 15 minutes Emilia MasonPage Hospital Medical ClinicStart: 02-13-2023 End: 84-00-5940bkqgjevbavBhwqujc Calvey Other [employer] Other Start: 63-75-8888Niuvhs outpatient visit 15 minutes Gabi Berry OrthopedicsStart: 01-16-2023 End: 94-62-3173ruagrkxgrdSthsnod Abrahan Other [employer] Other Start: 59-79-3215Qeyvcp outpatient new 30 minutes Gabi Berry OrthopedicsStart: 01-05-2023 End: 19-04-2888zvgdkwskxgNkdxoe Mason Other [employer] Other Start: 25-25-7965Hybezcvny encounterMarcia BraunBAN[facility] ClinicStart: 09-21-2022 End: 40-22-2058tgzpjfoplzRjibnl Mason Other [employer] Other Start: 29-90-1975Wrcgpaimw encounterMarcia BraunBAN[facility] ClinicStart: 09-06-2022 End: 13-59-8710rthjxuzjnqXowjwu Mason Other [employer] Other Start: 46-78-2526Vxmiccyab encounterMarcia BraunG [facility] ClinicStart: 08-18-2022 End: 63-92-5550twrjtynfaoHegwej Mason Other [employer] Other Start: 99-85-4077Wqgnbwjjo encounterEmilia WanG [facility] ClinicStart: 08-14-2022 End: 21-84-1071qsnxrssxywQS MARCIA E BRAUNFacility:P4Gtfxa: 06-01-2022 End: 58-93-1546tedngzeaioPG Marcia Caro Marlon Work Phone: [facility] Work Phone: Start: 06-01-2022 End: 66-40-8761Ojuxsdg encounter procedure Emilia Marlon Work Phone: [facility] Work Phone: Start: 02-13-2022 End: 55-94-7342cinygbltyeHF MARCIA E BRAUNFacility:Z0Swnxi: 94-56-5270Xasyl health examinationEmilia Marlon Other [place] [employer] Other Start: 28-83-0147mngrscqnbzAKZOJ EVELINA .Facility:H1 Start: 10-03-2021 End: 52-18-3908rbjvavrsouJUXKL EVELINA .Facility:L9Yznnm: 09-16-2021 End: 17-46-1836uusrxpcnwxSUVCF EVELINA .Facility:I7Qdzsm: 72-32-5527jixupaawkb Dr. Emilia MasonFacility:9090Start: 08-29-2021 End: 42-02-1298Pfhjgbj encounter procedureMD Emilia Mason Work Phone: [facility] Start: 08-05-2021 End: 64-66-4663Lpkeomo encounter procedureMD Emilia Mason Work Phone: [facility] Start: 07-72-5105OwkrxjnmvdEFTYUWUD UNKNOWNFacility:3Start: 09-11-2016 End: 32-85-8087RgqoilxinjDDCMOC A SHEIKHFacility:[facility] Procedures DateProcedureProcedure DetailPerforming ClinicianStart: 45-88-9617Fmnp energy X- ray absorptiometryEmilia Mason MD Work Phone: Start: 85-19-0540Xvefzydnb mammography of bilateral breastsMarcjanes Marlon CHAN Work Phone: Start: 53-64-6834SSQFACWGKOQ SKIN LESIONNatalie A Felter REPRODUCTION TECHNICIAN-MULTICULTURAL SERVICES LIBRARIAN Work Phone: Start: 53-69-3261Awvus X-ray of right hipMD Emilia Marlon Work Phone: Start: 35-25-6978Wbmwn X-ray of sacroiliac jointMD Emilia Marlon Work Phone: Start: 19-79-0975Q-ray of lumbar spine, two or three viewsMD Emilia Marlon Work Phone: Start: 93-03-8248Ehpgrxpis mammography of bilateral breastsMD Emilia Marlon Work Phone: Start: 11-40-2380E-ray of lumbar spine, four or more viewsMD Nieto Marlon Work Phone: Start: 13-89-6852Dlyl energy X-ray absorptiometryMD Nieto Marlon Work Phone: Start: 76-34-7402Kau-surgery evaluationEmilia Marlon Other Screening for malignant neoplasm of breastEmilia Marlon Other Viral screeningEmilia Marlon Other Plan of Treatment DateCare ActivityDetailAuthorStart: 02-04-2025 End: 46-63-9076Vhbcdcs encounter yzafrcnbm72/29/2025 10:40 AM EDT Office Visit [facility] [address] [place] [address] Tabby Levin MD [address] [facility] [address] [place] [address] [facility] SWS NEURStart: 10-23-2024 End: 96-03-2266Wdkxaxp encounter procedureNOMS SWS NEURComment on above:Arrived Start: 09-10-2024 End: 44-09-4251Vtfdexo encounter ppmsznqib26/04/2025 12:00 PM EDT Office Visit [facility] [address] [place] [address] Tabby Levin MD [address] [facility] [address] [id number] ArrivedNOMS SWS NEURComment on above: ArrivedStart: 02-14-2024 End: 86-12-0075Muborsa encounter ouimxcgse62/07/2024 10:55 AM EST Office Visit [facility] [address] [place] [address] Lisbet Rollins, REPRODUCTION TECHNICIAN-MULTICULTURAL SERVICES LIBRARIAN [address] [place] [address] [facility] SWS DERMStart: 01-07-2024 End: 13-25-4966Xwjkduv encounter nuygphrjh48/30/2024 1:10 PM EDT Office Visit [facility] [address] [place] [address] Lisbet Rollins, REPRODUCTION TECHNICIAN-MULTICULTURAL SERVICES LIBRARIAN [address] [place] [address] ArrivedNOMS SWS DERMComment on above: ArrivedStart: 95-26-8299lngwmqvrvfXhugolfmmqJvshjwoq:F4Upqejuxxpqnzd metabolic 1999 panel - Serum or PlasmaClermont County HospitalComprehensive metabolic 1999 panel - Serum or PlasmaH[facility] Payers DatePayer CategoryPayerPolicy [id number] 2023Medicare (Managed Care) [id number] [id number] Health Insurance [id number] 2.840.1.781835.3.57[id number] 2.840.1.927332.3.57[id number] 2.840.1.099841.3.57[id number] 2.840.1.700216.3.579.[id number] 2.840.1.123104.3.57[id number] 2.840.1.093992.3.57[id number] 2.16840.1.815120.3.57[id number] 2.16840.1.738610.3.579.2.[id number] 2.16840.1.389553.3.57[id number] 2.16840.1.376157.3.57[id number] 2.840.1.631273.3.579.2.1259MedicaidMedicaid [id number] [id number] Health Insurance [id number] [id number]/HFA/FAP [id number] 05.25.830.1.6[id number] 2..1.454146.3.579.2.531 Social History DateTypeDetailFacilityTobacco smoking status NHISUnknown if ever smokedSelect [facility] Work Phone: Start: 25-42-7295Baq [facility]: 01-07-2024 End: 53-45-4032Wed Assigned At [facility] [employer] Other Start: 06-19-2016 End: 44-28-8156Erdxtgq smoking status NHISNever smoked tobacco (finding) [facility]: 98-00-6758Qudazut use and exposure Smokeless tobacco non-userNOMS HealthcareStart: 01-07-2024 End: 24-61-6347Ilhyfnvsk beverage intakeDeferNOMS HealthcareStart: 01-07-2024 End: 73-25-0898Voxrjkm of Social functionNOMS HealthcareStart: 36-95-5045Thr assigned at birthNot on fileNOMS HealthcareTobacco smoking status NHISTobacco smoking consumption unknownNOAR HealthcareStart: 06-07-2024 End: 60-42-7018XdjJxqscm (finding)[facility] Clinical Notes 09-21-2022 to 10-23-2024 Note Date & GrgfZuqdKbyhwlns28-82-8933 History of Present illness Narrative* Tabby Levin MD - 10/23/2024 10:40 AM EDT Images from the original note were not included. CHIEF COMPLAINT REASON FOR VISIT : Patient states the tizanidine worked wonders for her. She statesit really helped her sleep. She wants to know if Dr. Levin would refill it. She states she has onlyhad two episodes of the pain but nothing like it did not before. She states the tizanidine would stop the pain. She does not feel like her neck is not as tight as before. She states she hopes her xray s are fine and would like to go over results. Subjective Dara Jiménez is a 78 y.o. female who presents for neck pain on left with spasm2 History of Present Illness The patient presents for neck pain. She reports a significant improvement in her condition, attributing it to the medication she has been taking. She has experienced only 2 or 3 episodes of neck pain, which were less severe than previous ones. The onset of these episodes was often triggered by yawning or head movements, but she noticed that maintaining a downward head position during a yawn prevented the pain. Her mobility has improved, and she no longer experiences the tightness that was previously present. She also reports no tics or pulling sensations. Initial stiffness on the left side of her neck when the symptoms first appeared has not recurred recently. She has never experienced migraines and has not had a severe headache since starting the medication. No radiating pain down her arm, tingling, or numbness is reported. Sleep quality has improved with the medication, and she does not have any other sleep issues. She is interested in learning about exercises that could further alleviate her neck pain. SOCIAL HISTORY: Occupations: Hairdresser Hobbies: Gardening Sleep: Reports improved sleep quality since starting medication, no other sleep issues MEDICATIONS CURRENT MEDS: PREVIOUS MEDS: Review of Systems Const: Denies appetite change, fever, chills. Allergy: Denies medication reaction. Ocular: Denies visual acuity change. ENT: Denies hearing change. Endoc: Denies weight loss. Resp: Denies dyspnoea, wheezing. Cardiac: Denies angina, palpitations. GI: Denies nausea, vomiting. Haem: Denies bleeding. : Denies incontinence. MSK: Denies arthralgias, joint oedema. Derm: Denies rash, hair loss. Neuro: Denies ataxia, tremor. Also see HPI for elements of ROS documented therein and for details of positive findings, which shall supersede the foregoing. Objective Blood pressure 132/84, height 4' 11 , weight 133 lb. Physical Exam Motor Examination Muscle Bulk and Tone: Muscle tone is normal. Strength: Strength 5/5 in upper extremities. Results Imaging - X-ray of the neck: Shows some narrowing at the C5-C6 level, indicating a bit of degeneration. Assessment & Plan 1. Neck pain. The patient's neck pain is likely due to muscle spasms caused by slight degeneration at the C5-C6 level. The current medication regimen appears to be effective in managing the condition, as evidencedby the absence of severe episodes since its initiation. Surgical intervention is not deemed necessary at this point. A handout detailing chin tuck exercises was provided, and she was advised to perform these exercises up to 10 times daily, twice a day. The current medication will be continued, and a refill has been sent to her pharmacy. If her condition deteriorates or if she has any concerns, anearlier appointment will be scheduled. Follow-up A follow-up visit is scheduled in 3 months. 2. I did personally review her X-rays with flexion and extension with her. 3. I counseled the patient on the possible side effects and interactions of medications. 4. If not better consider trigger point injection. 5. Physical therapy will be ordered if needed for presumed cervical radiculopathy to see if we can increase mobility, decrease pain and improve neurological function of the upper extremities. This clinical note was created utilizing [employer] documentation system. All information has beenthoroughly reviewed, corrected as necessary, and authenticated by the provider to ensure accuracy and completeness. On occasion, [employer] documentation system erroneously drops words or replaces aspoken word with a similar sounding word. Please notify with any questions or concerns regarding this clinical note. documented in this encounterShriners Hospitals for [id number] History of Present illness Narrative* Tabby Levin MD - 09/10/2024 12:00 PM EDT Images from the original note were not included. CHIEF COMPLAINT REASON FOR VISIT: sharp left-sided neck pain HPI: Dara Jiménez is a 78 y.o. female who presents for a new patient consultation Self referred for left sided neck pain. When she turns her head or yawns she gets a sharp left sided neck pain that shoots up into the head. She states she has to tilt her head back to relieve it. It is really bad whereshe yells out. She has had it less frequent but is still getting it. More downward things is more noticeable. She states if feels like a tight spasm. She states yawning is adams and brings it on. She states that she will tilt her head back now to yawn to try to prevent it. No whiplash or trauma that she is aware of. She did have a bad accident last year tripping over a rug and fell against her bench in her laundry room. Sharp pains were prior to that. She did go to [facility] and had scans. She states she was getting a lot of headaches. She stats her sinuses don't drain and she feels a lot of pressure. She states she gets the migraines about once a month. She states that she does not have any neck pain right now. No issues with balance or falls. CURRENT MEDICATIONS: ALLERGIES/DISCONTINUE MEDICATIONS Current Outpatient Medications Medication Instructions Aspirin (ECOTRIN PO) Ecotrin Calcium Carb-Cholecalciferol (CALCIUM 500 + D PO) Calcium clobetasol (Temovate) 0.05 % external solution Apply to scalp once daily when flared/itchy. Hold when clear. 30 day supply ibuprofen 800 mg, Oral, 3 times daily PRN lisinopril 20 MG tablet Every 24 hours lisinopril 5 MG tablet Take 1 tablet every day by oral route for 90 days. Misc Natural Products (SUPER GREENS PO) Super Greens Multiple Vitamin (MULTIVITAMIN ADULT PO) Red Yeast Rice Extract (RED YEAST RICE PO) traMADol (Ultram) 50 MG tablet Every 8 hours No Known Allergies There are no discontinued medications. PAST MEDICAL HISTORY: SURGICAL/SOCIAL/FAMILY HISTORY DEPRESSION SCREEN: History reviewed. No pertinent past medical history. History reviewed. No pertinent surgical history. Social History Tobacco Use Smoking status: Never Smokeless tobacco: Never Vaping Use Vaping status: Never Used Substance Use Topics Alcohol use: Defer Drug use: Defer No family history on file. Depression: Not on file REVIEW OF SYMPTOMS: Review of Systems Constitutional: Negative for chills, diaphoresis, fatigue and fever. HENT: Negative for ear pain, tinnitus and trouble swallowing. Eyes: Negative for photophobia and visual disturbance. Respiratory: Negative for cough and shortness of breath. Cardiovascular: Negative for palpitations and leg swelling. Gastrointestinal: Negative for abdominal pain and nausea. Genitourinary: Negative for difficulty urinating and urgency. Musculoskeletal: Positive for neck pain and neck stiffness. Negative for arthralgias, back pain andmyalgias. Neurological: Positive for headaches. Negative for tremors, weakness, light- headedness and numbness. Psychiatric/Behavioral: Negative for agitation, confusion and suicidal ideas. OBJECTIVE: 09/10/2024 11:42 AM 10/24/2017 12:00 PM 08/01/2017 12:00 PM Vitals BMI 26.86 kg/m2 20.2 kg/m2 20.2 kg/m2 BSA (m2) 1.58 m2 1.37 m2 1.37 m2 Height (in) 4' 11 4' 11 4' 11 Weight (lb) 133 100 100 Visit Report Report EXAM: Neurological Exam Mental Status Awake, alert and oriented to person, place and time. Oriented to person, place and time. Recent andremote memory are intact. Speech is normal. Language is fluent with no aphasia. Attention and concentration are normal. Cranial Nerves CN II: Visual acuity is normal. Visual schaefer full to confrontation. CN III, IV, : Extraocular movements intact bilaterally. Normal lids and orbits bilaterally. Pupils equal round and reactive to light bilaterally. CN V: Facial sensation is normal. CN VII: Full and symmetric facial movement. CN VIII: Hearing is normal. CN XII: Tongue midline without atrophy or fasciculations. Motor Normal muscle bulk throughout. Normal muscle tone. Right Left Wrist flexion 5 5 Wrist extension 5 5 Right Left Deltoid 5 5 Biceps 5 5 Triceps 5 5 Wrist flexor 5 5 Wrist extensor 5 5 Glutei 5 5 Iliopsoas 5 5 Quadriceps 5 5 Gastrocnemius 5 5 Anterior tibialis 5 5 Posterior tibialis 5 5 Sensory Light touch is normal in upper and lower extremities. Pinprick is normal in upper and lower extremities. Vibration is normal in upper and lower extremities. Reflexes Right Left Brachioradialis 2+ 2+ Biceps 2+ 2+ Patellar 2+ 2+ Achilles 2+ 2+ Right Plantar: downgoing Left Plantar: downgoing Right pathological reflexes: Loren's absent. Ankle clonus absent. Left pathological reflexes: Loren's absent. Ankle clonus absent. Coordination [id number], rapid alternating movements and [id number] normal bilaterally without dysmetria. Gait Normal casual, toe, heel and tandem gait. Romberg is absent. PROCEDURE: NONE ASSESSMENT AND PLAN: Dara Jiménez is a 78 y.o. female that presents with left-sided neck pain. The possible etiologies include cervical degenerative disc disease or facet joint disease. The patient also complains of radicular pain and paresthesias into the upper extremities possibly due to cervical radiculopathy, brachial plexopathy or peripheral neuropathy. She presents headaches possibly due to migraine headaches, muscle tension headaches, complicated migraine, migraine variant, or chronic daily headache. Another consideration would be medication overuse headaches or rebound headaches due to increased use oftylenol or chronic headaches secondary to an underlying sleep disorder. Diagnoses and all orders for this visit: Cervical radiculopathy I will place order for XR CERVICAL SPINE AP/LAT/FLEX/EXT/OBLIQUES; Future Start tiZANidine (Zanaflex) 4 MG tablet; Take 1 tablet (4 mg) by mouth at bedtime to help relax muscles. Consider injections. Will place PA for trigger injections. I counseled the patient on the possible side effects and interactions of medications. Total time 30 minutes spent reviewing records, performing medically appropriate exam, counseling , education, ordering medication, tests, and/or procedures, documenting health information into the health record, communicating results to the patient, and coordinating care. Follow up 6 weeks. This note was scribed by YUDITH Driscoll acting under the direction of Tabby Levin MD. The content has been reviewed and confirmed for accuracy by Tabby Levin MD documented in this encounterShriners Hospitals for [id number] Evaluation note* Diagnosis Onset Date Resolution Status Admit Date Elevated cholesterol acuteMarch 2024 1:34pmOsteoporosisacuteMarch 2024 1:34pm [facility] Work Phone: [phone]) 865-214709-30-2024 History of Present illness Narrative* Lisbet Galarza Ayo, REPRODUCTION TECHNICIAN-MULTICULTURAL SERVICES LIBRARIAN - 01/07/2024 1:10 PM EDT Follow up Diagnosis: Seborrheic Dermatitis Location: Scalp Last visit: 12/17/2017 Symptoms: Very, very itchy Status: Flared Current treatment: Clobetasol 0.05% solution every day/prn was prescribed, she did not use. States she was never sent anything by prescription. Only using Nizoral shampoo at this time Lesions: Location: Thighs Duration: Years Quality: Bothersome Modifying factors: Continues to get more Associated symptoms: Rough bumps Treatments: None New former patient All pertinent medical history, medications, and allergies were reviewed. General Exam: alert , oriented to person, place, and time , normal affect, well appearing A focused exam completed based on patient reported problems, see below: 1. Psoriasis vulgaris (CMS/HCC) Scalp Erythema and scale. Flaring today Discussed that psoriasis is a chronic condition that can be controlled but not cured. Start Clobetasol 0.05% solution every day. Hold when clear. Appropriate use of medication discussed, patient voiced understanding. Plan to follow up in six weeks. Script sent to preferred pharmacy at this time. Notify office if flaring despite treatment. clobetasol (Temovate) 0.05 % external solution - Scalp Apply to scalp once daily when flared/itchy. Hold when clear. 30 day supply 2. Inflamed seborrheic keratosis (8) Left Knee - Anterior, Left Thigh - Anterior (5), Right Knee - Anterior, Right Thigh - Anterior Inflamed seborrheic keratoses: pink and brown stuck on verrucous scaly papule with surrounding erythema and bloody crust. The patient was informed that symptomatic seborrheic keratoses are benign growths that become inflamed, itchy, tender, traumatized, caught on clothing, or bleed. Symptomatic lesions can be treated with cryotherapy or curretage. Thicker lesions treated with cryotherapy may require more than one treatment. The patient was instructed to notify the office if abnormal redness or tenderness develops atthe treatment site. Cryotherapy today, see procedure note. Diagnosis: Inflamed seborrheic keratosis Indication: Inflamed Consent: Verbal consent was obtained and risks were discussed, including, but not limited to risks of scarring, darker or software licensing specialist pigmentary changes, recurrence, incomplete removal and infection. Method: Liquid nitrogen was used to treat the lesion(s) with two 5-10 second freeze-thaw cycles Number of lesions treated: 8 Post-procedure instructions: Instructions were given orally and in writing. The office will be contacted if the lesion fails to resolve despite treatment, or if a side effect develops such as abnormal crusting, scabbing, redness or tenderness Cryotherapy, skin lesion - Left Knee - Anterior, Left Thigh - Anterior (5), Right Knee - Anterior, Right Thigh - Anterior Next Visit: 6 weeks, follow up psoriasis documented in this encounterShriners Hospitals for [id number] Evaluation note* Encounter Date Diagnosis Assessment Notes Treatment Notes Treatment Clinical Notes Feb, Abnormal brain CT (ICD-10 - R90. 89) Dara is reluctant to get MRI and she has no symptoms of headaches or visual changes. I called Dr. Bellamy, he reviewed her scans and agreed that she does not need an MRI. This message was relayed to Dara. Feb,Status post fall (ICD-10 - Z91.81)Fall was due to tripping on a shop vac, per her report. No syncope, collapse or other concerns for falling. Feb,Facial laceration, initial encounter (ICD-10 - S01.81XA)Pt requests referral to Dr. Taylor to address the scar on her L forehead. [employer] Other [id number] Evaluation note* Encounter Date Diagnosis Assessment Notes Treatment Notes Treatment Clinical Notes Feb, Trigger finger, right middle fin krishna (ICD-10 - M65.331) Physical examination of the right middle finger was performed today. Patient is progressing well from her previous cortisone injection. Patient is to watch symptoms and continue with stretching exercises. Patient is to f/u PRN Feb,anglion cyst of flexor tendon sheath of finger of right hand (ICD- 10 - M67.441) Patient does appear to have a ganglion cyst of the right middle finger. Patient is advised to monitor the cyst, if cyst becomes more bothersome she is to come into the office for further workup. [employer] Other 10-10-2023 Evaluation note* Encounter Date Diagnosis Assessment Notes Treatment Notes Treatment Clinical Notes Jan, Trigger finger, right middle fin krishna (ICD-10 - M65.331) This appears to trigger finger. We discussed the cause of this condition and the treatment options.We discussed stretching of the finger as well as massage of the palmar MCP region. We discussed theuse of cortisone injection into the palmar aspect of the hand at the trigger site can be helpful inrelieving painful symptoms. We also discussed the option of surgical release which can eliminate the problem. We performed .5/.5cc marcaine/40mg kenalog cortisone injection into the palmar aspect of the fingernear at the A1 juliane under sterile technique. The patient tolerated this well without complication. We discussed that the finger may feel numb and tingle for hours after this injection. [employer] Other 06-15-2023 Evaluation note* Encounter Date Diagnosis Assessment Notes Treatment Notes Treatment Clinical Notes Sep, Mixed hyperlipidemia (ICD-10 - E 78.2) [employer] Other Evaluation noteNo assessment information available [facility] Work Phone: Evaluation noteNo InformationN[employer] Other Evaluation note* Diagnosis Onset Date Resolution Status Elevated cholesterol acuteEssential hypertensionacute [facility] Work Phone: Evaluation note* Diagnosis Psoriasis vulgaris (CMS/HCC) Other psoriasis Inflamed seborrheic keratosis documented [facility] encounter [facility]* Diagnosis Cervical radiculopathy- Primary Brachial neuritis or radiculitis nos Cervical radiculopathy Brachial neuritis or radiculitis nos documented in this encounter [facility]* Diagnosis Cervical radiculopathy- Primary Brachial neuritis or radiculitis nos documented in this encounter [facility]* Diagnosis Onset Date Resolution Status Admit Date Elevated cholesterol acuteOctober 2024 10:17amEssential hypertensionacuteOctober 2024 10:17amInfluenza vaccination declinedacuteOctober 2024 10:17amMedicare annual wellness visit, subsequentacuteOctober 2024 10:17am [facility] Work Phone: History general Narrative - Reported* Type Description Date Medical History hypertension Medical HistoryOsteopenia after menopauseMedical HistoryPain of left thumb Medical HistoryGreater trochanteric bursitis of left hipMedical HistoryEssential hypertensionMedical HistoryOsteoarthritisMedical HistoryLeft sided chest pain Medical HistorySciatica of right sideMedical HistoryRestless legMedical History Elevated cholesterolMedical HistoryOveractive bladderMedical HistoryImpingement of left ankle jointSurgical HistoryhysterectomySurgical Historyhernia repair Surgical Historylaceration of the bladder during hysterectomySurgical History Left ankle repairHospitalization HistorySee Above [employer] Other Reason for referral (narrative)No reason for referral information availablePromedica Bay Park Hospital Work Phone: Summary Purpose Family History Relationship Condition Age at Onset Recorded Date/T iesha brother Malignant neoplasm Unknown fatherDiabetes mellitusUnknownDeceasedUnknownmotherDeceasedUnknownMalignant neoplasmUnknownMalignant neoplasm of breastUnknownsisterDiabetes mellitusUnknown Advance Directives Advance Directive Response Recorded Date/ Time Advance Directives No February 04, 2018 1:38pm Advance Directive Response Recorded Date/ Time Advance Directives No February 04, 2018 12:38pm Chief Complaint and Reason for Visit Chief Complaint z78.0 Chest Pain M54.31 Chief Complaint Screening Chief Complaint Low back pain, R SI jt pain, hip pain Chief Complaint CC Adult Risk Strati fication CC Adult Risk Stratification WellnessReason for VisitElevated cholesterol Essential hypertension Chief Complaint Admit Date Z12.31 Z78.0 June 06, 2024 12:14pm Chief Complaint Admit Date Z12.31 Z78.0 June 06, 2024 12:14pm Discuss DEXA results June 23, 2024 1: 34pm Reason for Visit Admit Date Elevated cholesterol June 23, 2024 1: 34pm Osteoporosis June 23, 2024 1:3 4pm Chief Complaint Admit Date Wellness January 14, 2025 10 :17am Reason for Visit Admit Date Elevated cholesterol January 14, 2025 1 0:17am Essential hypertension January 14, 2025 10:17am Influenza vaccination declined January 142024 10:17am Medicare annual wellness visit, subseque nt January 14, 2025 10:17am Reason for Referral Reason Forehead laceration, no history of sutures, presented to ER some time after fall.) Diagnosis 1 Facial laceration, i nitial encounter (S01.81XA) Referral Organization [facility] Referring Provider First Name Emilia Referring Provider Last Name Marlon Referring Provider Specialty Family [facility] Referred Organization Unknown Facility Referred Provider Shane Taylor Referred Provider Specialty Plastic and Reconstructive Surgery Referral Priority Routine Additional Source Comments INFORMATION SOURCE (unrecogn ized section and content) DATE CREATED AUTHOR 09/24/2017 [facility] DATE CREATED AUTHOR AUTHOR'S ORGANIZ ATION 10/03/2017 [facility] DATE CREATED AUTHOR AUTHOR'S ORGANIZ ATION 02/03/2021 [facility] DATE CREATED AUTHOR AUTHOR'S ORGANIZ ATION 08/10/2022 [facility] DATE CREATED AUTHOR AUTHOR'S ORGANIZ ATION 08/18/2022 [facility] DATE CREATED AUTHOR AUTHOR'S ORGANIZ ATION 06/09/2024 [facility] DATE CREATED AUTHOR AUTHOR'S ORGANIZ ATION 10/27/2024 [facility] [employer]IC Care Teams (unrecognized sec tion and content) Team Status: Active Member Role Status Dates Emilia Mason MD Primary Care Provider Active Team Status: Inactive Member Role Status Dates Emilia Mason MD Primary Care Provide r, Attending Provider Active Start: June 06, 2024 End: June 06, 2024 Team Status: Active Member Role Status Dates Emilia Mason MD Primary Care Provide r, Attending Provider Active Start: January 11, 2024 Team Status: Active Member Role Status Dates Emilia Mason MD Primary Care Provide r, Attending Provider Active Start: January 14, 2024 Team Status: Inactive Member Role Status Dates Emilia Mason MD Primary Care Provide r, Attending Provider Active Start: January 14, 2024 End: January 14, 2024 Team Status: Inactive Member Role Status Dates Emilia Mason MD Primary Care Provider, Attending P bala Active FLORENCIA Ambrocioeferring ProviderActive Team Status: Inactive Member Role Status Dates Emilia Mason MD Primary Care Provider, Attending Sara mckenna Active Team Status: Inactive Member Role Status Dates Emilia Mason MD Primary Care Provider, Referring Sara mckenna Active Referral SelfAttending ProviderActive Team Status: Inactive Member Role Status Dates Emilia Mason MD Primary Care Provider Active Start: October 04, 2023 End: October 03Laith Fontana ProviderActiveStart: October 04, 2023 End: October 04, 2023 Team Status: Inactive Member Role Status Dates Emilia Mason MD Primary Care Provide r, Attending Provider Active Start: June 23, 2024 End: June 23, 2024 Team Status: Inactive Member Role Status Dates Emilia Mason MD Primary Care Provider Active Start: January 14, 2025 End: January 14, 2025Laith Benjamin ProviderActiveStart: January 14, 2025 End: January 14, 2025 Goals (unrecognized section and content) Goals may be documented in a n alternate sectionGoals may be documented in an alternate sectionNo InformationNo InformationNo InformationNo InformationNo InformationNo InformationNo InformationNo InformationNo InformationNo InformationGoals may be documented in an alternate sectionGoals may be documented in an alternate sectionGoals may be documented in an alternate sectionGoals may be documented in an alternate sectionGoals may be documented in an alternate sectionGoals may be documented in an alternate section REASON FOR VISIT (unrecogniz ed section and content) labsRefillmessagelab resultR ight Long Trigger FingerRecheck Right Long Fingerabnormal CT brainfell on faceORTHO CONSULT NOTERefill FOR RECORDS PERTAINING TO PATIENTS WHO ARE OR HAVE BEEN ENROLLED IN A CHEMICAL DEPENDENCY/SUBSTANCEABUSE PROGRAM, SOME INFORMATION MAY BE OMITTED. This clinical summary was aggregated from multiple sources. Caution should be exercised in using it in the provision of clinical care. This summary normalizes information from multiple sources, and as a consequence, information in this document may materially change the coding, format and clinical context of patient data. In addition, data may be omitted in some cases. CLINICAL DECISIONS SHOULD BE BASED ON THE PRIMARY CLINICAL RECORDS. [facility] [employer] [facility]. provides no warranty or guarantee of the accuracy or completeness of information in this document.
[2025-02-09 13:41] LABS: Hematocrit 41.8 % (36.0-48.0); Hemoglobin 13.6 g/dL (12.0-16.0); Immature Granulocytes Abs Auto 0.02 10^3/uL (0.00-0.03); Immature Granulocytes Pct Auto 0.3 % (0.0-0.5); Lymphocytes Absolute Auto 2.2 10^3/uL (1.2-3.8); Mean Corpuscular HGB Conc 32.5 g/dL (29.9-35.2); Mean Corpuscular Hemoglobin 30.6 pg (26.7-34.0); Mean Corpuscular Volume 94.1 fL (81.0-99.0); Platelet Count 325 10^3/uL (150-450); Red Blood Count 4.44 10^6/uL (4.20-5.40); White Blood Count 7.7 10^3/uL (4.0-11.0)
[2025-02-09 13:43] LABS: Microalbum Creatinine Ratio Ur 10.2 mg/g (0.0-29.9)
[2025-02-09 13:46] LABS: Alanine Aminotransferase 24 U/L (14-59); Albumin Globulin Ratio 0.9; Albumin Level 3.5 g/dL (3.4-5.0); Alkaline Phosphatase 82 U/L (46-116); Anion Gap 11.4; Aspartate Amino Transferase 15 U/L (15-37); Blood Urea Nitrogen 11.0 mg/dL (7.0-18.0); Calcium 8.6 mg/dL (8.5-10.1); Carbon Dioxide 28.7 mmol/L (21.0-32.0); Chloride 105 mmol/L (98-107); Cholesterol 303 mg/dL (<=200); Estimated GFR (African America >60 (>=60 mL/min/1.73m^2); Estimated GFR (Non-African Ame >60 (>=60 mL/min/1.73m^2); Globulin 3.9 g/dL; Glucose 106 mg/dL (74-106); HDL Cholesterol 81 mg/dL (40-60); Potassium 4.1 mmol/L (3.5-5.1); Sodium 141 mmol/L (136-145); Total Protein 7.4 g/dL (6.4-8.2); Triglycerides 90 mg/dL (<=150); VLDL CHOLESTEROL 18.0 mg/dL
== END 2025-02-09 12:11 | disposition home or self-care (01) ==
LOC: LAB 12:19
PROVIDERS: PCP Family Medicine; Visit Provider Family Medicine
DX: Z00.00 Encounter for general adult medical examination without abnormal findings (principal); I10 Essential (primary) hypertension; E78.00 Pure hypercholesterolemia, unspecified
CPT/HCPCS: 36415; 80053; 80061; 82043; 82570; 85025

== ENCOUNTER 2025-03-18 12:44 | Outpatient (OUT) | payer MEDICARE, SELFPAY ==
--- OUTSIDE RECORDS SUMMARY | 2025-03-18 12:51 | XMS_ITS | CCD ---
Author Organization [facility] CliniSydc Care Team Providers Care Aircraft Communicator Name Role Phone ALEYDA SANTOS A Unavailable Unavailable SANTOSPRESTON HUMPHREYSEB A Unavailable Unavailable BEE, HARVEY Unavailable Unavailable BEE, HARVEY Unavailable Unavailable UNKNOWN, PROVIDER Unavailable Unavailable UNKNOWN, PROVIDER Unavailable Unavailable BEE, HARVEY Unavailable Unavailable MD Emilia Mason Primary Care Provider MD Emilia Mason Attending Provider MD Jessie Mercer Referring Provider MD Emilia Mason Primary Care Provider MD Emilia Mason Referring Provider [phone] Self, Referral Attending Provider Unavailable Dr. Emilia [...] Care Provider Emilia Mason MD Attending Provider [phone] Emilia Mason Primary Care Unavailable Tony Damico [...] reviewed by nurse or physiciaPropensity to adverse iujluctpl55-45-9733Kbejyee:Gloople Other (7 sources)Allergies ReconciledPropensity to adverse reactionsFranciscan Health CrawfordsvillePure Software Other (5 sources)ezetimibe; Translations: [ezetimibe]Drug Ndcdldm89-37-2085Knuuwchl of the [facility] Medications Current Medications MedicationDrug Class(es)DatesSig (Normalized)Sig (Original)Aspirin (8 sources)Platelet Aggregation Inhibitor, Nonsteroidal Anti-inflammatory Drug Aspirin (ECOTRIN PO) Ecotrin ActiveCalcium (6 sources)Phosphate Binder, CalciumCalcium ActiveCalcium Carb-Cholecalciferol (CALCIUM 500 + D PO) (8 sources)Calcium Carb-Cholecalciferol (CALCIUM 500 + D PO) Calcium Active clobetasol propionate 0.5 mg/ml topical solution (13 sources)CorticosteroidStart: 82-73-7037ljgiushpab (Temovate) 0.05 % external solution Indications: Psoriasis vulgaris Apply to scalp once daily when flared/itchy. Hold when clear. 30 day supply 50 mL 3 01/30/2024 ActiveStart: 01-14-2024 End: 12-35-4620Dqirhzbhag 0.05 % solution Discontinued TOPICAL January 14, 2024 12:00am January 14, 2025 10:29amStart: 99-11-9231Qqvlhbepzg Active TOPICAL January 14, 2024 12:00amStart: 50-34-2308xwvqbuaygl (Temovate) 0.05 % external solution Indications: Psoriasis vulgaris (CMS/HCC) Apply to scalp once daily when flared/itchy. Hold when clear. 30 day supply 50 mL 11 01/07/2024 Active Start: 86-73-6276ydtyxqtfjb (Temovate) 0.05 % external solution Indications: Psoriasis vulgaris (CMS/HCC) Apply to scalp once daily when flared/itchy. Hold when clear. 30 day supply 50 mL 11 01/07/2024 ActiveCollagen (6 sources)Collagen Activeibandronic acid 150 mg oral tablet (3 sources)BisphosphonateStart: 06-23-2024 End: 92-53-6423ffqh 1 tablet by mouth every monthIbandronate 150 mg tablet Active 150 MG PO every month July 29, 2024 12:36pm Complies with drug therapyibuprofen 800 mg oral tablet (20 sources)Nonsteroidal Anti-inflammatory DrugStart: 36-94-3265zrud 1 tablet by mouth three times daily as neededIbuprofen 800 mg tablet Active 0 .ROUTE .COMPLEX 90 September 11, 2024 10:32am TAKE 1 TABLET BY MOUTH THREE TIMES DAILY NEEDED Complies with drug therapyStart: 01-14-2024 End: 97-87-6628gupg 1 tablet by mouth three times daily as neededIbuprofen 800 mg tablet Discontinued 800 MG PO Three times daily as needed January 14, 2024 12:00am September 11, 2024 10:32amtake 1 tablet by mouth every eight hours at mealtime as neededIbuprofen 800 MG 1 tablet with food or milk as needed Orally every 8 hrs Rwgxgr96 hr metoprolol succinate 50 mg extended release oral tablet (1 source)beta-Adrenergic BlockerStart: 54-18-0682gzjj 1 tablet by mouth once dailyMetoprolol Succinate [...] Once a day ActiveMultivitamin tablet (3 sources)Start: 59-48-5546yefd 1 tablet by mouth once dailyMultivitamin tablet Active 1 TAB PO Daily June 23, 2024 12:00am Complies with drug therapyStart: 12-16-9533tjtr 1 tablet by mouth once dailyMultivitamin tablet Active 1 TAB PO Daily June 23, 2024 12:00amRed Yeast Rice (6 sources)Red Yeast Rice ActiveRed Yeast Rice Extract (RED YEAST RICE PO) (8 sources)Red Yeast Rice Extract (RED YEAST RICE PO) Activerosuvastatin calcium 10 mg oral tablet (4 sources)HMG-CoA Reductase InhibitorStart: 29-54-6220pvsx 1 tablet by mouth every twenty-four hoursCrestor 10 MG 1 tablet Orally Once a day for 30 days August, ActivetiZANidine 4 mg oral tablet (8 sources)Central alpha-2 Adrenergic AgonistStart: 25-91-1921popj 1 tablet by mouth once daily at bedtime as neededTizanidine 4 mg tablet Active 4 MG PO Daily at bedtime as needed January 14, 2025 12:00am Complieswith drug therapyStart: 09-11-2024 End: 41-96-4806psbb 1 tablet by mouth at bedtimetiZANidine (Zanaflex) [...] Zoster Virus Nucleoside Analog DNA Polymerase InhibitorStart: 73-56-3862Hogyqucvhqia (Valtrex) 1 gram tablet Active 2000 MG PO Twice daily January 14, 2025 12:00am Complies with drug therapy Completed/Discontinued Medications MedicationDrug Class(es)DatesSig (Normalized)Sig (Original)ezetimibe 10 mg oral tablet (4 sources)Dietary Cholesterol Absorption InhibitorStart: 03-12-2024 End: 39-35-0159hafu 1 tablet by mouth once dailyEzetimibe (Zetia) 10 mg tablet Discontinued 10 MG PO Daily March 12, 2024 1:00am March 26, 2024 2:35pmlisinopril 5 mg oral tablet (20 sources)Angiotensin Converting Enzyme InhibitorStart: 01-14-2024 End: 96-80-9513dykj 1 tablet by mouth once dailyLisinopril 5 mg tablet Discontinued 5 MG PO Daily June 09, 2024 12:22pm January 14, 2025 10:29am lisinopril 20 MG tablet 1 (one) time each day at the same time Active nitrofurantoin, macrocrystals 100 mg oral capsule (1 source)Nitrofuran AntibacterialStart: 01-07-2025 End: 61-31-3101xjsc 1 capsule by mouth twice daily at mealtimeNitrofurantoin Macrocrystal 100 mg capsule Discontinued 100 MG PO Twice daily January 07, 2025 12:00am January 14, 2025 10:29am must administer with a meal/food triamcinolone acetonide 40 mg/ml injectable suspension (6 sources)CorticosteroidStart: 96-84-0753Fqkhwev-40 Jan, 20 mg Problems Active Problems Problem ClassificationProblemDateDocumented DateEpisodic/ChronicAbdominal pain (9 sources)Left lower quadrant pain; Translations: [Left lower quadrant pain] Onset: 98-52-9344FwgljysvRkdudhywrkpl of device; implant or graft (3 sources)Pain due to internal orthopedic prosthetic devices, implants and grafts, initial encounter; Translations: [Pain due to internal orthopedic prosth dev/grft, init]EpisodicDiabetes mellitus without complication (4 sources)Increased glucose level; Translations: [Other abnormal glucose] 96-91-5799GggksstgUtpulsjzn of lipid metabolism (20 sources)Pure hypercholesterolemia; Translations: [Pure hypercholesterolemia, unspecified]Onset: 44-50-8644GgmmganIiktsfubvplemt and diverticulitis (5 sources)Diverticulosis of colon; Translations: [Diverticulosis of large intestine without perforation or abscess without bleeding]Onset: 09-10-2024 18-77-6886ExdeyesKiljhebtf hypertension (20 sources)Essential (primary) hypertension; Translations: [Essential hypertension]Onset: 88-32-1394WydtockUedcrseu of lower limb (6 sources)Displaced fracture of lateral malleolus of left fibula, subsequent encounter for closed fracture with routine healing; Translations: [Displaced pilon fracture of left tibia, subsequent encounter for closed fracture with routine healing]Onset: 25-83-6852ZnuaowhjAnyuiarrdtosu symptoms and ill-defined conditions (11 sources)Genitourinary symptoms; Translations: [Unspecified symptoms and signs involving the genitourinary system]Onset: 623325-41-9675Zhjpepmd Nonmalignant breast conditions (3 sources)Pain of breast; Translations: [Mastodynia]EpisodicNonspecific chest pain (16 sources)Left sided chest pain; Translations: [Chest pain, unspecified] EpisodicOpen wounds of head; neck; and trunk (1 source)Laceration without foreign body of other part of head, initial encounterEpisodicOsteoarthritis (16 sources)Osteoarthritis; Translations: [Unspecified osteoarthritis, unspecified site]ChronicOsteoporosis (20 sources)Postmenopausal osteopenia; Translations: [Age-related osteoporosis without current pathological fracture]Onset: 338755-39-7645VxqaaikVzjyd circulatory disease (3 sources)Elevated blood-pressure reading without [...] urethra (15 sources)Overactive bladder; Translations: [Overactive bladder]Onset: 073635-55-0159GwcveqfIdumy gastrointestinal disorders (6 sources)Constipation; Translations: [Constipation, unspecified]EpisodicOther hereditary and degenerative nervous system conditions (18 sources)Restless legs; Translations: [Restless legs syndrome]Onset: 509765-20-5606DcrftqhLnmkn inflammatory condition of skin (2 sources)Psoriasis vulgaris; Translations: [Psoriasis vulgaris]01-07-2024 ChronicOther injuries and conditions due to external causes (6 sources)History of fall; Translations: [Personal history of fall]Onset: 59-54-9661PcyjmxwjCydtt injuries and conditions due to external causes (1 source)History of fallingEpisodicOther non-traumatic joint disorders (10 sources)Finger joint locking; Translations: [Other specific joint derangements of unspecified hand, not elsewhere classified]ChronicOther non- traumatic joint disorders (15 sources)Impingement of left ankle joint; Translations: [Other specified joint disorders, left ankle and foot]Onset: 297252-71-7843LktfjtxaFwcph non-traumatic joint disorders (3 sources)Arthralgia of the [...] (2 sources)Inflamed seborrheic keratosis; Translations: [Inflamed seborrheic keratosis]17-17-7987RmgqmwxzLxbov skin disorders (5 sources)Loss of hair; Translations: [Nonscarring hair loss, unspecified] Onset: 036910-73-4390PiskkjclFaivksiu codes; unclassified (10 sources)Insomnia; Translations: [Other insomnia]ChronicResidual codes; unclassified (3 sources)Immunization refused ; Translations: [Immunization not carried out because of patient refusal]EpisodicResidual codes; unclassified (3 sources)Postmenopausal state; Translations: [Asymptomatic menopausal state] EpisodicResidual codes; unclassified (4 sources)Menopause present; Translations: [Asymptomatic menopausal state] 44-79-9823ZqdbgrfkByuhyjio codes; unclassified (2 sources)Influenza vaccination declined; Translations: [Immunization not carried out because of patient refusal]87-30-6026LwejhmkhSwhvbcorrbm; intervertebral disc disorders; other back problems (20 sources)Radiculopathy, lumbar region; Translations: [Intervertebral disc disorders with radiculopathy, lumbar region]Onset: 63-81-1201Ilbqbrrd Unclassified (7 sources)Abnormal result of other cardiovascular function study; Translations: [Other abnormal findings on diagnostic imaging of central nervous system]Onset: 30-21-5870RcvchbarGcxwkshdffky (2 sources)Unknown / UNK(Unknown)Onset: 31-23-2928Kzsmqkpwwcxc (2 sources)Abnormal result of other cardiovascular function study / R94.39(ICD-9)Onset: 61-44-3459Tjqoqibdvkdj (1 source)Other chest pain / R07.89(ICD-9)Onset: 87-01-3386Ojfglyasgxbz (2 sources)LOW BACK PAIN, UNSPECIFIED; Translations: [LOW BACK PAIN, UNSPECIFIED]Onset: 51-55-6587Dmeafijvcqju (1 source)Low back pain, unspecified; Translations: [Low back pain, unspecified] Onset: 32-39-6322Hhuejxk tract infections (5 sources)Recurrent urinary tract infection; Translations: [Urinary tract infection, site not specified]Onset: 791811-60-2116Hqhzdluk Past or Other Problems Problem ClassificationProblemDateDocumented DateEpisodic/ChronicConditions associated with dizziness or vertigo (3 sources)Benign paroxysmal positional vertigo; Translations: [Benign paroxysmal positional vertigo]Onset: 56-20-9557DaxzpdfjUebsdtar codes; unclassified (3 sources)Acquired absence of uterus; Translations: [Acquired absence of uterus with remaining cervical stump]Onset: 59-36-8144FnyaskraVicpvaixcmom (1 source)LOW BACK PAIN, UNSPECIFIED; Translations: [LOW BACK PAIN, UNSPECIFIED] Onset: 09-16-2021 Results Test NameValueInterpretationReference RangeFacilityXR CERVICAL SPINE AP/LAT/FLEX/EXT/OBLIQUESon 44-09-2595VV CERVICAL SPINE AP/LAT/FLEX/EXT/OBLIQUES Exam: XR CERVICAL SPINE [...] AvailableXR Cervical spine 4 or 5 Viewson 66-64-0042Nepl: XR CERVICAL SPINE AP/LAT/FLEX/EXT/OBLIQUES Reason for exam: [...] signed and approved by the interpreting radiologist. [facility] CenterRadiology Study observation (narrative)[facility] Cervical spine 4 or 5 ViewsOrdered By: Abhi Garcia on 68-30-2793CTCJMetropolitan [facility]iatric Center Work Phone: mm screening mammo BI w/CADon 69-72-2474MA screening mammo BI w/CAD[facility] [address] [place] [address] Mammography Report Signed Patient: Dara Jiménez MR#: [id number] 825 : 1945 Acct:[id number] Age/Sex: 78 / F Adm Date: 06/06/24 Loc: [place] Room: Type: [facility] Attending Dr: Emilia Mason MD Ordering Provider: Emilia Mason MD Date of Service: 06/06/24 Procedure(s): MM screening mammo BI w/CAD Accession Number(s): ([id number]) MM/MM screening mammo BI w/CAD: Z12.31 - [...] Leonel Earl M.D.06/06/2024 1:31 PM Dictation Location: [facility] Dictated By: Leonel Earl II, MD 06/06/24 1314 Signed By: 06/06/[address] [place] [address] Physician GroupMammography reportOrdered By: Leonel Earl on 38-41-6809Puzqxljkba imaging [facility] [address] [place] [address] Mammography Report Signed Patient: Dara Jiménez MR#: [id number] : 1945 Acct:[id number] Age/Sex: 78 / F Adm Date: 5 Loc: [place] Room: Type: [facility] Attending Dr: Emilia Mason MD Ordering Provider: Emilia Mason MD Date of Service: 06/06/24 Procedure(s): MM screening mammo BI w/CAD Accession Number(s): ([id number]) MM/MM screening mammo BI w/CAD: Z12.31 - [...] Leonel Earl M.D.06/06/2024 1:31 PM Dictation Location: [facility] Dictated By: Leonel Earl II, MD 06/06/24 1314 Signed By: 06/06/[address] [place] [address] Work Phone: No [facility] Informationon 83-09-6466RQBZMetropolitan [facility] Psychiatric CenterXR hip RT min 2V(w/wo pelvis)*on 24-49-6496TH hip RT min 2V(w/wo pelvis)*[facility] [place] [address] XRay Report Signed Patient: Dara Jiménez MR#: [id number] : 1945 Acct:[id number] Age/Sex: 77 / F ADM Date: 10/04/23 Loc: ICXD Room: Type: [facility] Attending Dr: Tony Damico MD Copies to: Tony Damico MD Ordering Provider: Tony Damico MD Date of Service: 10/04/23 XR/XR hip RT min 2V(w/wo pelvis)*: PAIN ([id number]) XR/XR si joints: PAIN ([id number]) XR/XR lumbar spine 2-3V*: PAIN LUMBAR SPINE [...] Cano Jr., D.ODaniel10/04/2023 3:54 PM Dictation Location: [place] [address] Transcribed By: [facility] 10/04/23 1554 Dictated By: Torey Cano Jr, DO 10/04/23 1551 Signed By: 10/04/23 1554[facility] Physician GroupCB AUTO DIFFon 05-74-3422LFTR # 0.1 103/ulNormal0.0-0.1Fisher-Titus Medical CenterComment on above:Performed By: #### CBC #### [facility] [address] [address] [address] Luis Cowansophils/100 WBC (Bld)0.7 %Normal0.2-2.0The [facility] Comment on above:Performed By: #### CBC #### [facility] [address] [address] [address] Luis Mitchell #0.0 103/ulNormal0.0-0.7The [facility]itrick HospitalComment on above: Performed By: #### CBC #### [facility] [address] [address] [address] Luis Ruizosinophils/100 WBC (Bld)0.5 %Critically low0.9-7.0The [facility] on above:Performed By: #### CBC #### [facility] [address] [place] [address] Dr. Luis Ruizrythrocyte distribution width (RBC) [Ratio]13.3 %Bgmkxm06.0-15.0 The [facility]itrick HospitalComment on above:Performed By: #### CBC #### [facility] [address] [place] [address] Dr. Luis EliHematocrit (Bld) [Volume fraction]39.6 %Lzwaxp01.0-48.0The [facility]it[facility] HospitalComment on above:Performed By: #### CBC #### [facility] [address] [place] [address] Dr. Luis EliHemoglobin (Bld) [Mass/Vol]12.8 g/dWAydrdo87.0-16.0The [facility] Centerment on above:Performed By: #### CBC #### [facility] [address] [place] [address] Dr. Luis García #0.02 10e3/ulNormal0.00-0.03The [facility] on above:Performed By: #### CBC #### [facility] [address] [place] [address] Dr. Luis García %0.3 %Normal0.0-0.5The [facility] on above: Performed By: #### CBC #### [facility] [address] [place] [address] Dr. Luis SerranoH #2.1 103/ulNormal1.2-3.8The [facility] HospitalCombeaumont hospital on above:Performed By: #### CBC #### [facility] [address] [place] [address] Dr. Luis Vaughnmphocytes/100 WBC (Bld)27.9 %Qxpxbw45.5-60.0The [facility] HospitalComment on above:Performed By: #### CBC #### [facility] [address] [address] [address] Luis Alvarez DIFF REQNONormalThe [facility]itrick HospitalComment on above: Performed By: #### CBC #### [facility] [address] [place] [address] Dr. Luis Villasenor (RBC) [Entitic mass]30.8 otZprnmp06.7-34.0The [facility] HospitalComment on above:Performed By: #### CBC #### [facility] [address] [place] [address] Dr. Luis Villasenor (RBC) [Mass/Vol]32.3 g/aBGhcvcv81.9-35.2The [facility] HospitalComment on above:Performed By: #### CBC #### [facility] [address] [place] [address] Dr. Luis Villasenor (RBC) [Entitic vol]95.2 bRTyubdv46.0-99.0The [facility] HospitalComment on above:Performed By: #### CBC #### [facility] [address] [place] [address] Dr. Luis Monk #0.5 103/ulNormal0.3-0.8The [facility] HospitalComment on above:Performed By: #### CBC #### [facility] [address] [place] [address] Dr. Luis Wheelerocytes/100 WBC (Bld)6.9 %Normal1.7-12.0The [facility] Comment on above:Performed By: #### CBC #### [facility] [address] [place] [address] Dr. Luis Jiang #4.9 103/ulNormal1.4-6.5The [facility] HospitalComment on above:Performed By: #### CBC #### [facility] [address] [place] [address] Dr. Luis Alejandrautrophils/100 WBC (Bld)63.7 %Sbckjl34.0-75.0[facility] on above:Performed By: #### CBC #### [facility] [address] [place] [address] Dr. Luis Cohenlet mean volume (Bld) [Entitic vol]10.1 fLNormal9.5-13.5The [facility] HospitalCombeaumont hospital on above:Performed By: #### CBC #### [facility] [address] [place] [address] Dr. Luis EliPLT303 103/wzTdkfkm241-336Vlx [facility] on above: Performed By: #### CBC #### [facility] [address] [place] [address] Dr. Luis EliRBC4.16 106/ulCritically low4.20-5.40The [facility] on above:Performed By: #### CBC #### [facility] [address] [place] [address] Dr. Luis EliWBC7.6 103/ulNormal4.0-11.0The [facility] on above: Performed By: #### CBC #### [facility] [address] [place] [address] Dr. Luis HernandezID PROFILEon 48-68-5180FRTX-HDL RATIO [facility]Com[facility] on above:Result Comment: 3.3 - 4.4 LOW RISK 4.4 - 7.1 AVERAGE RISK 7.1 - 11.0 MODERATE RISK >11.0 HIGH RISKPerformed By: #### CMP, LIPID #### [facility] [address] [place] [address] Dr. Luis EliCholesterol [Mass/Vol]280 mg/dLCritically high<=200The [facility] on above:Performed By: #### CMP, LIPID #### [facility] [address] [place] [address] Dr. Luis Roblesesterol in HDL [Mass/Vol]84 mg/dLCritically sfzn68-84Bmn [facility] on above:Performed By: #### CMP, LIPID #### [facility] [address] [address] [address] Luis EliCholesterol in LDL [Mass/Vol]180.2 mg/dLMount St. Mary HospitalComment on above:Performed By: #### CMP, LIPID #### [facility] [address] [address] [address] Luis Roblesesterenrique.total/Cholesterol in HDL [Mass ratio]3.3 {ratio} NormalThe [facility] HospitalComment on above:Performed By: #### CMP, LIPID #### [facility] [address] [address] [address] Luis Gautam NORMAL> or = 60 mg/dl - LOW CARDIOVASCULAR RISK <40 mg/dl - HIGH CARDIOVASCULAR RISKMount St. Mary HospitalCombeaumont hospital on above:Performed By: #### CMP, LIPID #### [facility] [address] [place] [address] Dr. Luis Vitale CALC NORMALSEE BELOWMount St. Mary HospitalComment on above:Result Comment: <100 mg/dl OPTIMAL 100 - 129 mg/dl NEAR OR ABOVE OPTIMAL 130 - 159 mg/dl BORDERLINE HIGH 160 - 189 mg/dl HIGH >190 mg/dl VERY HIGH Performed By: #### CMP, LIPID #### [facility] [address] [place] [address] Dr. Luis EliTriglyceride [Mass/Vol]79 mg/dLNormal<=150[facility] Comment on above:Performed By: #### CMP, LIPID #### [facility] [address] [place] [address] Dr. Luis EliVLDL CALC15.8 mg/dLNoTuscarawas HospitalCombeaumont hospital on above: Performed By: #### CMP, LIPID #### [facility] [address] [place] [address] Dr. Luis EliPROKimberlee 14(COMP METB)on 49-39-0455Loqjkpn [Mass/Vol]3.4 g/dLNormal 3.4-5.0The [facility] HospitalComment on above:Performed By: #### CMP, LIPID #### [facility] [address] [address] [address] Luis EliAlbumin/Globulin [Mass ratio]0.8 {ratio}NormalThe [facility] HospitalComment on above:Performed By: #### CMP, LIPID #### [facility] [address] [address] [address] Luis DevineP [Catalytic activity/Vol]79 U/VGukfsy07-286Njp [facility] HospitalComment on above:Performed By: #### CMP, LIPID #### [facility] [address] [address] [address] Luis DevineT [Catalytic activity/Vol]23 U/HFffbfv06-03Bvc [facility] HospitalComment on above:Performed By: #### CMP, LIPID #### [facility] [address] [place] [address] Dr. Luis Greenon gap [Moles/Vol]12.5 mmol/LNormalThe [facility] Comment on above:Performed By: #### CMP, LIPID #### [facility] [address] [address] [address] Luis EliAST [Catalytic activity/Vol]18 U/TDrquwx53-21Taf [facility] HospitalComment on above:Performed By: #### CMP, LIPID #### [facility] [address] [place] [address] Dr. Luis EliBilirubin [Mass/Vol]0.6 mg/dLNormal0.2-1.0The [facility] Comment on above:Performed By: #### CMP, LIPID #### [facility] [address] [place] [address] Dr. Luis EliCalcium [Mass/Vol]8.8 mg/dLNormal8.5-10.1The [facility] Comment on above:Performed By: #### CMP, LIPID #### [facility] [address] [place] [address] Dr. Luis EliChloride [Moles/Vol]106 mmol/WVuxtwo42-842Sck [facility] Comment on above:Performed By: #### CMP, LIPID #### [facility] [address] [address] [address] Luis EliCO2 [Moles/Vol]27.8 mmol/OEahhvg73.0-32.0The [facility] Comment on above:Performed By: #### CMP, LIPID #### [facility] [address] [address] [address] Luis EliCreatinine [Mass/Vol]0.88 mg/dLNormal0.55-1.02The [facility] HospitalComment on above:Performed By: #### CMP, LIPID #### [facility] [address] [address] [address] Luis RuizGFR-AF MALTESE>60Normal>=60The [facility] HospitalComment on above:Performed By: #### CMP, LIPID #### [facility] [address] [address] [address] Luis RuizGFR-NON AF MALTESE>60Normal>=60The [facility] HospitalComment on above:Performed By: #### CMP, LIPID #### [facility] [address] [place] [address] Dr. Luis EliGlobulin (S) [Mass/Vol]4.1 g/dLNormalThe [facility] HospitalComment on above:Performed By: #### CMP, LIPID #### [facility] [address] [address] [address] Luis EliGlucose [Mass/Vol]95 mg/sMGwbczk03-554Irv [facility] Comment on above:Performed By: #### CMP, LIPID #### [facility] [address] [address] [address] Luis EliPotassium [Moles/Vol]4.3 mmol/LNormal3.5-5.1The [facility] Comment on above:Performed By: #### CMP, LIPID #### [facility] [address] [place] [address] Dr. Luis EliProtein [Mass/Vol]7.5 g/dLNormal6.4-8.2The [facility] Comment on above:Performed By: #### CMP, LIPID #### [facility] Laboratory [address] [address] [address] Luis Rushdium [Moles/Vol]142 mmol/BBtwwsb976-165Pvx [facility] Comment on above:Performed By: #### CMP, LIPID #### [facility] [address] [address] [address] Luis Benites nitrogen [Mass/Vol]19.0 mg/dLCritically high7.0-18.0The [facility] HospitalComment on above:Performed By: #### CMP, LIPID #### [facility] [address] [address] [address] Luis Benites nitrogen/Creatinine [Mass ratio]21.6 mg/mgNormalThe [facility] HospitalComment on above:Performed By: #### CMP, LIPID #### [facility] [address] [place] [address] Dr. Luis Cortés AUTO DIFFon 39-48-1510GLAC #0.1 103/ulNormal0.0-0.1The [facility] HospitalComment on above:Performed By: #### CBC #### [facility] [address] [address] [address] Luis EliBasophils/100 WBC (Bld)0.6 %Normal0.2-2.0[facility] Comment on above:Performed By: #### CBC #### [facility] [address] [place] [address] Dr. Luis Mitchell #0.1 103/ulNormal0.0-0.7The [facility]Com[facility] on above: Performed By: #### CBC #### [facility] [address] [place] [address] Dr. Luis Ruizosinophils/100 WBC (Bld)1.3 %Normal0.9-7.0The [facility] Comment on above:Performed By: #### CBC #### [facility] [address] [place] [address] Dr. Luis Ruizrythrocyte distribution width (RBC) [Ratio]13.8 %Hahcav84.0-15.0 The Dorie HospitalComment on above:Performed By: #### CBC #### [facility] [address] [place] [address] Dr. Luis Saucedoatocrit (Bld) [Volume fraction]37.6 %Sprpgs83.0-48.0The [facility] HospitalComment on above:Performed By: #### CBC #### [facility] [address] [place] [address] Dr. Luis EliHemoglobin (Bld) [Mass/Vol]12.2 g/vGAtmbyp58.0-16.0The [facility] HospitalComment on above:Performed By: #### CBC #### [facility] [address] [place] [address] Dr. Luis García #0.02 10e3/ulNormal0.00-0.03The [facility]Com[facility] on above:Performed By: #### CBC #### [facility] [address] [place] [address] Dr. Luis García %0.2 %Normal0.0-0.5The [facility] HospitalComment on above: Performed By: #### CBC #### [facility] [address] [place] [address] Dr. Luis Rushing #2.4 103/ulNormal1.2-3.8The [facility] on above:Performed By: #### CBC #### [facility] [address] [place] [address] Dr. Luis Serranohocytes/100 WBC (Bld)27.7 %Mtuuof64.5-60.0The [facility] HospitalComment on above:Performed By: #### CBC #### [facility] [address] [place] [address] Dr. Luis BolanosUAL DIFF REQNONormalThe [facility] HospitalComment on above: Performed By: #### CBC #### [facility] [address] [place] [address] Dr. Luis Reyes (RBC) [Entitic mass]29.6 ryNyugow53.7-34.0The [facility] HospitalComment on above:Performed By: #### CBC #### [facility] [address] [place] [address] Dr. Luis Villasenor (RBC) [Mass/Vol]32.4 g/oYFolmla96.9-35.2The [facility] HospitalComment on above:Performed By: #### CBC #### [facility] [address] [place] [address] Dr. Luis Estrada (RBC) [Entitic vol]91.3 gGOmbucg29.0-99.0The [facility] HospitalComment on above:Performed By: #### CBC #### [facility] [address] [place] [address] Dr. Luis Monk #0.6 103/ulNormal0.3-0.8The [facility] HospitalComment on above:Performed By: #### CBC #### [facility] [address] [place] [address] Dr. Luis Wheelerocytes/100 WBC (Bld)6.5 %Normal1.7-12.0The [facility] Comment on above:Performed By: #### CBC #### [facility] [address] [place] [address] Dr. Luis Jiang #5.5 103/ulNormal1.4-6.5The [facility] HospitalComment on above:Performed By: #### CBC #### [facility] [address] [place] [address] Dr. Luis Stocktonophils/100 WBC (Bld)63.7 %Tcvbvg80.0-75.0The [facility] HospitalComment on above:Performed By: #### CBC #### [facility] [address] [place] [address] Dr. Luis Cohenlet mean volume (Bld) [Entitic vol]10.1 fLNormal9.5-13.5The [facility] HospitalComment on above:Performed By: #### CBC #### [facility] [address] [place] [address] Dr. Luis MonaeT312 103/uvJqumtb917-549Eed [facility] on above: Performed By: #### CBC #### [facility] [address] [place] [address] Dr. Luis EliRBC4.12 106/ulCritically low4.20-5.40The [facility] on above:Performed By: #### CBC #### [facility] [address] [place] [address] Dr. Luis EliWBC8.6 103/ulNormal4.0-11.0The [facility] on above: Performed By: #### CBC #### [facility] [address] [place] [address] Dr. Luis HernandezID PROFILEon 28-15-2448XFGC-HDL RATIO NORMSOhioHealth Doctors HospitalCombeaumont hospital on above:Result Comment: 3.3 - 4.4 LOW RISK 4.4 - 7.1 AVERAGE RISK 7.1 - 11.0 MODERATE RISK >11.0 HIGH RISKPerformed By: #### CMP, LIPID #### [facility] [address] [place] [address] Dr. Luis EliCholesterol [Mass/Vol]271 mg/dLCritically high<=200The [facility] on above:Performed By: #### CMP, LIPID #### [facility] [address] [place] [address] Dr. Luis EliCholesterol in HDL [Mass/Vol]90 mg/dLCritically hlof98-87Nla [facility] on above:Performed By: #### CMP, LIPID #### [facility] [address] [place] [address] Dr. Luis EliCholesterol in LDL [Mass/Vol]163.6 mg/dLKettering Health Troy on above:Performed By: #### CMP, LIPID #### [facility] [address] [place] [address] Dr. Luis Roblesesterenrique.total/Cholesterol in HDL [Mass ratio]3.0 {ratio} NormalThe Las Vegas HospitalComment on above:Performed By: #### CMP, LIPID #### [facility] [address] [place] [address] Dr. Luis Gautam NORMAL> or = 60 mg/dl - LOW CARDIOVASCULAR RISK <40 mg/dl - HIGH CARDIOVASCULAR RISKMount St. Mary HospitalComment on above:Performed By: #### CMP, LIPID #### [facility] [address] [address] [address] Luis EliLDL CALC NORMALSEE BELOWNoTuscarawas HospitalComment on above:Result Comment: <100 mg/dl OPTIMAL 100 - 129 mg/dl NEAR OR ABOVE OPTIMAL 130 - 159 mg/dl BORDERLINE HIGH 160 - 189 mg/dl HIGH >190 mg/dl VERY HIGH Performed By: #### CMP, LIPID #### [facility] [address] [place] [address] Dr. Luis EliTriglyceride [Mass/Vol]87 mg/dLNormal<=150The [facility] Comment on above:Performed By: #### CMP, LIPID #### [facility] [address] [place] [address] Dr. Luis RicardoLDL CALC17.4 mg/dLNoTuscarawas HospitalComment on above: Performed By: #### CMP, LIPID #### [facility] [address] [place] [address] Dr. Luis EliPROF 14(COMP METB)on 63-14-5429Omijpcs [Mass/Vol]3.4 g/dLNormal 3.4-5.0[facility] on above:Performed By: #### CMP, LIPID #### [facility] [address] [place] [address] Dr. Luis EliAlbumin/Globulin [Mass ratio]0.9 {ratio}NormalThe [facility] HospitalCombeaumont hospital on above:Performed By: #### CMP, LIPID #### [facility] [address] [place] [address] Dr. Luis DevineP [Catalytic activity/Vol]73 U/XZzsdbb24-028Tcd [facility] Centerment on above:Performed By: #### CMP, LIPID #### [facility] [address] [address] [address] Luis DevineT [Catalytic activity/Vol]14 U/CNmcgan83-62Ccy [facility] HospitalComment on above:Performed By: #### CMP, LIPID #### [facility] [address] [address] [address] Luis EliAnion gap [Moles/Vol]10.1 mmol/LNormalFisher[facility] Comment on above:Performed By: #### CMP, LIPID #### [facility] [address] [address] [address] Luis EliAST [Catalytic activity/Vol]15 U/KTrupfu35-85Hmd [facility] HospitalComment on above:Performed By: #### CMP, LIPID #### [facility] [address] [place] [address] Dr. Luis EliBilirubin [Mass/Vol]0.4 mg/dLNormal0.2-1.0[facility] Comment on above:Performed By: #### CMP, LIPID #### [facility] [address] [address] [address] Luis EliCalcium [Mass/Vol]8.5 mg/dLNormal8.5-10.1[facility] Comment on above:Performed By: #### CMP, LIPID #### [facility] [address] [place] [address] Dr. Luis EliChloride [Moles/Vol]105 mmol/ALiumla78-237Uck [facility] Comment on above:Performed By: #### CMP, LIPID #### [facility] [address] [address] [address] Luis EliCO2 [Moles/Vol]28.2 mmol/COyfeee86.0-32.0[facility] Comment on above:Performed By: #### CMP, LIPID #### [facility] [address] [address] [address] Luis EliCreatinine [Mass/Vol]0.76 mg/dLNormal0.55-1.02The [facility] HospitalComment on above:Performed By: #### CMP, LIPID #### [facility] [address] [address] [address] Luis RuizGFR-AF MALTESE>60Normal>=60The [facility] HospitalComment on above:Performed By: #### CMP, LIPID #### [facility] [address] [address] [address] Luis RuizGFR-NON AF MALTESE>60Normal>=60The [facility] HospitalComment on above:Performed By: #### CMP, LIPID #### [facility] [address] [address] [address] Luis EliGlobulin (S) [Mass/Vol]3.9 g/dLNormalThe [facility] HospitalComment on above:Performed By: #### CMP, LIPID #### [facility] [address] [place] [address] Dr. Luis EliGlucose [Mass/Vol]101 mg/tEFgxwex13-976KdlFisher-Titus Medical Center Comment on above:Performed By: #### CMP, LIPID #### [facility] [address] [address] [address] Luis EliPotassium [Moles/Vol]4.3 mmol/LNormal3.5-5.1The [facility] Comment on above:Performed By: #### CMP, LIPID #### [facility] [address] [address] [address] Luis EliProtein [Mass/Vol]7.3 g/dLNormal6.4-8.2The [facility] Comment on above:Performed By: #### CMP, LIPID #### [facility] [address] [address] [address] Luis EliSodium [Moles/Vol]139 mmol/UWdyehu213-707Wgk [facility] Comment on above:Performed By: #### CMP, LIPID #### [facility] [address] [address] [address] Luis EliUrea nitrogen [Mass/Vol]16.0 mg/dLNormal7.0-18.0The [facility] HospitalComment on above:Performed By: #### CMP, LIPID #### [facility] [address] [address] [address] Luis EliUrea nitrogen/Creatinine [Mass ratio]21.1 mg/mgMount St. Mary HospitalComment on above:Performed By: #### CMP, LIPID #### [facility] [address] [address] [address] Luis EliFormson 63-52-4530Dihyd [id number]#1.00CD:127[facility] DaytonPhysician Referralon 65-88-0196Uhbtkpcit Referral [id number]#1.00CD:127[facility] DaytonAmbulatory Clinical Summaryon 85-35-9679Wzdeaazhfq Clinical Summary {1l-b1-a9-a6-zc-4m-07-25-f9-55-51-9o-f8-96-60-08}CD:[id number] Hospital DaytonPatient Educationon 46-69-0131Vkjbdia EducationObstetrics and Gynecology Overactive Bladder, Adult Overactive [...] instructions ? Take ove (more content not included)...[facility] Office/Clinic Noteon 53-31-9453Nzcdftv Office/Clinic NoteHPI Staff MANAGER ASSET referred by Dr. Emilia Mason due to [...] changes to the vaginal (more content not included)...[facility] DaytonComment on above:Result Comment: Electronically Signed By: Allison Horton MD.br\Date and Time Signed: 02/02/21 11:57EDT\.br\Electronically Co- Signed By: Mansi Hernandez.maude\Date and Time Co-Signed: 02/02/21 11:49 EDT OVER READ - NCon 87-02-3122JOHP READ - NCDATE OF EXAM: Oct 24 [...] findings.This interpretation, provided by the radiologists of [facility], excludes evaluation of the cardiovascular system, which iscovered in a separate report issued by the ordering cardiologists. The radiologists of [facility] have no responsibilityfor evaluating the structures of the cardiovascular system.NormalEM Healthcare Vital Signs Date TimeVital SignValuePerforming YnemnchzxKaliqxhh94-57-9493 10:33-0400 Diastolic blood ydlbzjwc01 mm[Hg]Emilia Mason MD Work Phone: [phone] [place], [place] 1604910-08-2025 10:33-0400 Systolic blood glpowgtu015 mm[Hg]Emilia Mason MD Work Phone: [phone]10-08-2025 10:26-0400 Body cezdnv086.86 cmEmilia Mason MD Work Phone: [phone] [place], [place] 1604910-08-2025 10:26-0400 Body mass index (BMI) [Ratio]27.3 kg/o6GawjcjEmilia Mason MD Work Phone: [phone]10-08-2025 10:26-0400 Body rzajxd24.34 kgEmilia Mason MD Work Phone: [phone])[address]10-08-2025 10:26-0400 Heart rate79 /minEmilia Mason MD Work Phone: [phone]10-08-2025 10:26-0400 Respiratory rate14 /minEmilia Mason MD Work Phone: [facility]10-08-2025 10:26-0400 SaO2% (BldA) [Mass fraction]98 %Emilia Mason MD Work Phone: [facility]07-17-2025 10:29-0400 Body nvomwd571.9 cmTabby Levin MD Work Phone: [phone] [place], [place] 2068507-17-2025 10:29-0400Body mass index (BMI) [Ratio]26.86 kg/f9LnsnxlvTabby Levin MD Work Phone: [phone])[address] [place], [place] 2068507-17-2025 10:29-0400Body zlnban08.33 kgTabby Levin MD Work Phone: [phone])[address] [place], [place] 2068507-17-2025 10:29-0400Diastolic blood fwltdoly84 mm[Hg]Tabby Levin MD Work Phone: [phone])[address] [place], [place] 2068507-17-2025 10:29-0400Systolic blood dzklhofr821 mm[Hg]Tabby Levin MD Work Phone: 1(392)[address] [place], [place] 2068506-04-2025 11:42-0400Body suvgyi300.9 cmTabby Levin MD Work Phone: [phone])[address] [place], [place] 2068506-04-2025 11:42-0400Body mass index (BMI) [Ratio]26.86 kg/e1ZyfhapeTabby Levin MD Work Phone: [phone])[address] [place], [place] 2068506-04-2025 11:42-0400Body tqcajq63.33 kgTabby Levin MD Work Phone: 1(297)[address] [place], [place] 2068503-17-2025 13:35-0400Body pecmgq841.86 cmEmilia Mason MD Work Phone: [facility]03-17-2025 13:35-0400 Body mass index (BMI) [Ratio]27.4 kg/x2HceeivEmilia Mason MD Work Phone: [phone]03-17-2025 13:35-0400 Body whdcfo99.68 kgEmilia Mason MD Work Phone: [facility]03-17-2025 13:35-0400 Diastolic blood mm[Hg]Emilia Mason MD Work Phone: [facility]03-17-2025 13:35-0400 Heart rate80 /Abundio Mason MD Work Phone: [facility]03-17-2025 13:35-0400 Systolic blood ccwliozr121 mm[Hg]Emilia Mason MD Work Phone: [facility]10-07-2024 11:37-0400 Body zyhdiq150.86 cmW[facility]andot [facility]10-07-2024 11:37-0400Body mass index (BMI) [Ratio]25.6 kg/b0QuymqvjpgW[facility]10-07-2024 11:37-0400Body zxwnof44.6 kgWyandot Memorial Hospital10-07-2024 11:37-0400Diastolic blood djqxgiqr20 mm[Hg][facility] 01-14-2024 11:37-0400Heart rate72 /[facility] 01-14-2024 11:37-0400Respiratory rate16 /[facility] 01-14-2024 11:37-1375HrZ7% (BldA) [Mass fraction]97 %[facility]10-07-2024 11:37-0400Systolic blood gscaesyk332 mm[Hg][facility]11-28-2023 11:00-0500Body eerkjt970.86 cmEmilia Mason Other [employer] Other 499248-51-1875 11:00-0500Body mass index (BMI) [Ratio] 26.25 kg/p7GouwvtEmilia Mason Other [employer] Other 11-28-2023 11:00-0500Body ojfywz43.97 kgEmilia Mason Other [facility] [employer] Other 11-28-2023 11:00-0500Diastolic blood yrscimxi71 mm[Hg] Emilia Marlon Other [facility] [employer] Other 11-28-2023 11:00-0500Systolic blood hjdajgpv944 mm[Hg] Emilia Marlon Other [facility] [employer] Other Encounters Encounter DateEncounter TypeCare ProviderFacilityStart: 01-14-2025 End: 82-36-4248amqyjzwnsoDnvccs E Braun MD Work Phone: [facility] Work Phone: Start: 01-14-2025 End: 18-87-5911Qplfdgo encounter procedureEmilia Mason MD-[facility] Work Phone: Start: 10-23-2024 End: 22-43-8742Fujnbu Gris Levin MD Work Phone: [facility] NEUROLOGYStart: 10-23-2024 End: 75-78-3067Gypmtfyolis Levin MD Work Phone: noms NEUROLOGYStart: 10-23-2024 End: 65-86-9784Ozbejk outpatient visit 25 minutesTabby Levin MD Work Phone: [facility] SWS NEURComment on above:Cervical radiculopathy (Primary Dx)Start: 10-23-2024 End: 55-21-2481xmwgvbhgprLKEXCPF W BAUERNot AvailableStart: 09-10-2024 End: 21-72-0365Cmsnuwsamson Levin MD Work Phone: noms NEUROLOGYStart: 09-10-2024 End: 35-99-6845Mrigkd Gris Levin MD Work Phone: [facility] BM NEUROLOGYStart: 09-10-2024 End: 79-09-0625Kczzxh outpatient visit 25 minutesTabby Levin MD Work Phone: [facility] SWS NEURComment on above:Cervical radiculopathy (Primary Dx)Start: 09-10-2024 End: 27-68-7904myewyenjkrGMCUOQI W BAUERNot AvailableStart: 06-23-2024 End: 43-14-6407mrlnctnvpjAhgnlv E Braun MD Work Phone: [facility] Work Phone: Start: 06-23-2024 End: 64-69-2462Zpvyyqm encounter procedureEmilia Mason MD Work Phone: [facility] Work Phone: Start: 06-06-2024 End: 90-22-4420Blouxma encounter procedureEmilia Mason MD Work Phone: [facility] Work Phone: Start: 06-06-2024 End: 44-56-5342ldoncthmljXwcgsi E Braun MD Work Phone: [facility] Work Phone: Start: 36-69-2423Qhzrcjp encounter procedureEmilia Mason MD Work Phone: [facility]: 01-14-2024 End: 99-68-4713foryqvdqlkEtpcemnktMemorial Health System Work Phone: Start: 01-14-2024 End: 34-63-5838Ynfbaxc encounter procedureFormerly [facility] Work Phone: Start: 53-49-2556Dqi-patient / Non-visitFormerly [facility] Demetrius Work Phone: Start: 31-07-2115Rdq-patient / Non-visitFormerly [facility] Work Phone: start: 01-07-2024 End: 18-57-8517Tdfbdi flowsheetNatalie A Felter CHEMICAL LABORATORY TECHNICIAN-[employer] SUPERVISOR Work Phone: [facility] SWS DERMStart: 01-07-2024 End: 88-16-2319Ottryc flowsheetNatalie A Felter CHEMICAL LABORATORY TECHNICIAN-[employer] SUPERVISOR Work Phone: NOOU SWS DERMStart: 01-07-2024 End: 77-04-3368Caoesf outpatient new 30 minutesNatalie A Felter CHEMICAL LABORATORY TECHNICIAN-[employer] SUPERVISOR Work Phone: noms SWS DERMComment on above:Psoriasis vulgaris (CMS/HCC); Inflamed seborrheic keratosisStart: 01-07-2024 End: 80-61-6437kfiweopqbwGXXZPOV A FELTERNot AvailableStart: 10-04-2023 End: 80-62-0854Ggbdule encounter procedureMD Emilia Mason Work Phone: [facility] [address] Work Phone: Start: 10-04-2023 End: 61-30-7579eccimjafaeNJ Emilia Mason Work Phone: [facility] Work Phone: Start: 05-21-2023 End: 33-83-3520lqmlnsfoibGxqxlb Braun Other [employer] Other Start: 85-38-3559Qgpiajojb encounterEmilia Adair [facility] Centertart: 03-22-2023 End: 70-45-2666ykzmxdjpnbOrrrqu Braun Other [employer] Other Start: 87-03-9832Nslmqsgfa encounterEmilia Adair Referral CoordinatorStart: 03-09-2023 End: 35-94-7524emzgoyhnnxVdrqhp Braun Other [employer] Other Start: 93-23-4523Otqduunxo encounterMarcia BraunBULLHEAD [facility]Start: 03-06-2023 End: 75-31-6138esrfcitwdpQkweip Mason Other [employer] Other Start: 00-66-0195Nnhmtq outpatient visit 15 minutes Emilia MasonSierra [facility] Medical ClinicStart: 02-13-2023 End: 60-37-5659jbmygnytgkXonmqpv Calvey Other [employer] Other Start: 50-70-7797Ygpjed outpatient visit 15 minutes Gabi Berry OrthopedicsStart: 01-16-2023 End: 77-57-6399ugyaqiqxrwJvuicau Abrahan Other [employer] Other Start: 89-41-1348Vhlqet outpatient new 30 minutes Gabi Berry OrthopedicsStart: 01-05-2023 End: 02-55-3044nwbcsoobosUpzirx Mason Other [employer] Other Start: 44-23-0494Czaantvdk encounterMarcia BraunBULLHEAD COMMUNITY [facility] ClinicStart: 09-21-2022 End: 30-05-7064dvrnizsfaoQaeexu Mason Other [employer] Other Start: 23-02-3351Laijrebjx encounterMarcia BraunBULLHEAD COMMUNITY HOSP[facility] ClinicStart: 09-06-2022 End: 12-93-6475ixmgbevntsTvpwvt Mason Other [employer] Other Start: 07-23-0330Paramtgxn encounterMarcia BraunG [facility] ClinicStart: 08-18-2022 End: 25-59-4406byzpmoytzfGouvar Mason Other [employer] Other Start: 84-67-9630Qtncxhngp encounterEmilia WanG [facility] ClinicStart: 08-14-2022 End: 22-81-1708mwznorszmnXI MARCIA E BRAUNFacility:N3Gioby: 06-01-2022 End: 17-10-4489ehgvzunqtmUS Marcia Caro Marlon Work Phone: [facility] Work Phone: Start: 06-01-2022 End: 16-92-1206Wljfovr encounter procedure Emilia Marlon Work Phone: [facility] Work Phone: Start: 02-13-2022 End: 55-84-6508mwetkyubohZJ MARCIA E BRAUNFacility:Q1Deufu: 68-95-3465Xbrnq health examinationEmilia Marlon Other [place] [employer] Other Start: 57-91-3269iprgyepkbkNEPCX EVELINA .Facility:H1 Start: 10-03-2021 End: 42-52-9302ungqsufbmzZWFLB EVELINA .Facility:Z7Tyhfi: 09-16-2021 End: 52-03-8658wxfnzrytcyUOLEP EVELINA .Facility:N0Igpge: 31-71-6877ieocgpsvtt Dr. Emilia MasonFacility:9090Start: 08-29-2021 End: 44-52-9944Scgrial encounter procedureMD Emilia Mason Work Phone: [facility] Start: 08-05-2021 End: 55-84-3092Hrpxwyx encounter procedureMD Emilia Mason Work Phone: [facility] Start: 38-15-6838WpswhdwxeaVHLBZDYG UNKNOWNFacility:3Start: 09-11-2016 End: 34-21-3209PtjtwqhoqwFAMQSA A SHEIKHFacility:[facility] Procedures DateProcedureProcedure DetailPerforming ClinicianStart: 92-83-8733Kjgb energy X- ray absorptiometryEmilia Mason MD Work Phone: Start: 08-68-9394Jaslfaxgj mammography of bilateral breastsMarcjanes Marlon CHAN Work Phone: Start: 79-06-6124LXKVCTCRKIB SKIN LESIONNatalie A Felter CHEMICAL LABORATORY TECHNICIAN-[employer] SUPERVISOR Work Phone: Start: 42-09-4846Fkapm X-ray of right hipMD Emilia Marlon Work Phone: Start: 95-03-6805Djouq X-ray of sacroiliac jointMD Emilia Marlon Work Phone: Start: 73-67-7722D-ray of lumbar spine, two or three viewsMD Emilia Marlon Work Phone: Start: 18-09-2908Nlcdpbmyp mammography of bilateral breastsMD Emilia Marlon Work Phone: Start: 83-20-1799W-ray of lumbar spine, four or more viewsMD Nieto Marlon Work Phone: Start: 00-75-4444Vpzw energy X-ray absorptiometryMD Nieto Marlon Work Phone: Start: 66-38-3956Wpo-surgery evaluationEmilia Marlon Other Screening for malignant neoplasm of breastEmilia Marlon Other Viral screeningEmilia Marlon Other Plan of Treatment DateCare ActivityDetailAuthorStart: 02-04-2025 End: 66-97-6326Twfzoow encounter iqysptyhm82/29/2025 10:40 AM EDT Office Visit [facility] [address] [place] [address] Tabby Levin MD [address] [place] [address] [facility] SWS NEURStart: 10-23-2024 End: 65-69-2807Rthccjh encounter procedureNOMS SWS NEURComment on above:Arrived Start: 09-10-2024 End: 57-76-2503Miliaje encounter zcqebqtux85/04/2025 12:00 PM EDT Office Visit [facility] [address] [place] [phone] Tabby Levin MD [address] [facility] [address] [id number] ArrivedNOMS SWS NEURComment on above: ArrivedStart: 02-14-2024 End: 84-75-3297Bjkoshm encounter kprjevikt62/07/2024 10:55 AM EST Office Visit [facility] [address] [place] [phone] Lisbet Rollins, CHEMICAL LABORATORY TECHNICIAN-[employer] SUPERVISOR [address] [place] [address] [facility] DERMStart: 01-07-2024 End: 10-70-6854Wrcaygf encounter awfheejsr24/30/2024 1:10 PM EDT Office Visit [facility] [address] [place] [address] Lisbet Rollins, CHEMICAL LABORATORY TECHNICIAN-[employer] SUPER[employer]OR [address] [place] [address] ArrivedNOMS SWS DERMComment on above: ArrivedStart: 29-17-9457ajqfzvkvyxKaeoellucqWnlogbub:P8Jatqenzxgsgnl metabolic 1999 panel - Serum or PlasmaWyandot Memorial HospitalComprehensive metabolic 1999 [facility]Ad[facility] Payers DatePayer CategoryPayerPolicy [id number] 2023Medicare (Managed Care) [id number] [id number] Health Insurance [id number] 2.840.1.413503.3.57[id number] 2.840.1.339815.3.57[id number] 2.840.1.711191.3.57[id number] 2.840.1.052241.3.57[id number] 2.840.1.834959.3.57[id number] 2.840.1.503842.3.57[id number] 2.16840.1.852891.3.57[id number] 2.16840.1.906531.3.57[id number] 2.16840.1.795236.3.57[id number] 2.16840.1.750253.3.57[id number] 2.840.1.013937.3.579.2.1259MedicaidMedicaid [id number] [id number] Health Insurance [id number] [id number]/HFA/FAP [id number] 05.25.830.1.7[id number] 2..1.804704.3.579.2.531 Social History DateTypeDetailFacilityTobacco smoking status NHISUnknown if ever smokedSelect [facility] Work Phone: Start: 64-06-7815Ytv [facility]igned At [facility]: 01-07-2024 End: 04-80-1174Swo Assigned At [facility] [employer] Other Start: 06-19-2016 End: 17-32-7520Zgbvifz smoking status NHISNever smoked tobacco (finding) [facility]: 98-64-2928Ouklbvq use and exposure Smokeless tobacco non-userNOMS HealthcareStart: 01-07-2024 End: 64-35-6809Xrhldhbmy beverage intakeDeferNOMS HealthcareStart: 01-07-2024 End: 70-96-2097Fgsybdt of Social functionNOMS HealthcareStart: 24-32-0435Shz assigned at birthNot on fileNOMS HealthcareTobacco smoking status NHISTobacco smoking consumption unknownNOKY HealthcareStart: 06-07-2024 End: 58-80-5360FzbEpafui (finding)[facility] Clinical Notes 09-21-2022 to 10-23-2024 Note Date & ZhrvJlfcEuubgmuo54-64-4221 History of Present illness Narrative* Tabby Levin [...] extremities. This clinical note was created utilizing [employer] documentation system. All information has beenthoroughly reviewed, corrected as necessary, and authenticated by the provider to ensure accuracy and completeness. On occasion, [employer] documentation system erroneously drops words or replaces aspoken word with a similar sounding word. Please notify with any questions or concerns regarding this clinical note. documented in this encounterMetropolitan Saint Louis Psychiatric CenterIttvtaxcld82-12-5333 History of Present illness Narrative* Tabby Levin [...] prior to that. She did go to [facility] and had scans. She states she was [...] reflexes: Loren's absent. Ankle clonus absent. Coordination Jhgijt-nr-rzbj, rapid alternating movements and kixm-uo-nmpy normal bilaterally without dysmetria. 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 [...] weeks, follow up psoriasis documented in this encounterMetropolitan Saint Louis Psychiatric CenterVvglgqqqky55-78-7490 Evaluation note* Encounter Date Diagnosis Assessment Notes [...] address the scar on her L forehead. [employer] Other [id number] Evaluation note* Encounter Date Diagnosis Assessment Notes [...] come into the office for further workup. [employer] Other 10-10-2023 Evaluation note* Encounter Date Diagnosis [...] and tingle for hours after this injection. [employer] Other 06-15-2023 Evaluation note* Encounter Date Diagnosis Assessment Notes Treatment Notes Treatment Clinical Notes Sep, Mixed hyperlipidemia (ICD-10 - E 78.2) [employer] Other Evaluation noteNo assessment information available [facility] Work Phone: Evaluation noteNo InformationNort [employer] Other Evaluation note* Diagnosis Onset Date Resolution Status Elevated cholesterol acuteEssential hypertensionacute [facility] Work Phone: Evaluation note* Diagnosis Psoriasis vulgaris (CMS/HCC) Other psoriasis Inflamed seborrheic keratosis documented in this encounter [facility] HealthcareEvaluation note* Diagnosis Cervical radiculopathy- Primary Brachial neuritis or radiculitis nos Cervical radiculopathy Brachial neuritis or radiculitis nos documented in this encounter [facility] HealthcareEvaluation note* Diagnosis Cervical radiculopathy- Primary Brachial neuritis or radiculitis nos documented in this encounter [facility]* Diagnosis Onset Date Resolution Status Admit Date Elevated cholesterol acuteOctober 2024 10:17amEssential hypertensionacuteOctober 2024 10:17amInfluenza vaccination declinedacuteOctober 2024 10:17amMedicare annual wellness visit, subsequentacuteOctober 2024 10:17am [facility] Work Phone: History general Narrative - [...] hysterectomySurgical History Left ankle repairHospitalization HistorySee Above [employer] Other Reason for referral (narrative)No reason for referral information availableBlanchard Valley Health System [facility] Work Phone: Summary Purpose Family History [...] laceration, i nitial encounter (S01.81XA) Referral Organization [facility] Referring Provider First Name Emilia Referring Provider Last Name Marlon Referring Provider Specialty Family [facility] Referred Organization Unknown Facility Referred Provider Shane Taylor Referred Provider Specialty Plastic and Reconstructive Surgery Referral Priority Routine Additional Source Comments INFORMATION SOURCE (unrecogn ized section and content) DATE CREATED AUTHOR 09/24/2017 [facility] DATE CREATED AUTHOR AUTHOR'S ORGANIZ ATION 10/03/2017 [facility] DATE CREATED AUTHOR AUTHOR'S ORGANIZ ATION 02/03/2021 [facility] DATE CREATED AUTHOR AUTHOR'S ORGANIZ ATION 08/10/2022 [facility] DATE CREATED AUTHOR AUTHOR'S ORGANIZ ATION 08/18/2022 [facility] DATE CREATED AUTHOR AUTHOR'S ORGANIZ ATION 06/09/2024 [facility] DATE CREATED AUTHOR AUTHOR'S ORGANIZ ATION 10/27/2024 [facility] EPIC Care Teams (unrecognized sec [...] BE BASED ON THE PRIMARY CLINICAL RECORDS. [facility] [address] [facility]. provides no warranty or guarantee of the accuracy or completeness of information in this document.
[2025-03-18 13:39] LABS: Glucose Urine UA NEGATIVE (NEGATIVE)
== END 2025-03-18 12:45 | disposition home or self-care (01) ==
LOC: LAB 12:47
PROVIDERS: PCP Family Medicine; Visit Provider Family Medicine
DX: N39.0 Urinary tract infection, site not specified (principal)
CPT/HCPCS: 81003; 87086